=== PATIENT | male | born 1975 | race Caucasian/White ===

== ENCOUNTER 2021-05-12 19:45 | Emergency (ER) | payer BC ==
[2021-05-12 20:01] VITALS: TEMP 98.1
[2021-05-12] MEDS ORDERED: PANTOPRAZOLE 40 MG/10 ML VIAL IVP STA (20:30)
[2021-05-12] MEDS ORDERED: SODIUM CHLORIDE 0.9% 1,000 ML IV STA (20:30)
[2021-05-12] MEDS ORDERED: ONDANSETRON 4 MG/2 ML VIAL IVP STA (20:30)
[2021-05-12 21:01] LABS: Basophils # (A) 0.1 k/uL (0-0.2); Basophils % (A) 0 %; Eosinophils # (A) 0.4 k/uL (0-0.7); Eosinophils % (A) 3 %; HCT 43.1 % (39.0-53.0); Lymphocytes # (A) 2.5 k/uL (1.0-4.8); Lymphocytes % (A) 17 %; MCH 32.6 pg (25.0-35.0); MCHC 34.7 g/dL (31.0-37.0); Mean Platelet Volume 7.7; Monocytes # (A) 0.7 k/uL (0-1.0); Monocytes % (A) 5 %; Neutrophils # (A) 10.7 k/uL (1.3-7.7); Neutrophils % (A) 74 %; Platelet Count 206 k/uL (150-450); Poikilocytosis Slight; RBC 4.59 m/uL (4.30-5.90); RDW 13.7 % (11.5-15.5); WBC 14.5 k/uL (3.8-10.6)
[2021-05-12 21:11] LABS: ALT 14 U/L (4-49); AST 28 U/L (17-59); African American GFR (CKD) >90 (>60 ml/min/1.73 sqM); Albumin 4.7 g/dL (3.5-5.0); Alkaline Phosphatase 82 U/L (38-126); Amylase 69 U/L (30-110); Anion Gap 9 mmol/L; Blood Urea Nitrogen 13 mg/dL (9-20); Calcium 9.6 mg/dL (8.4-10.2); Carbon Dioxide 19 mmol/L (22-30); Chloride 109 mmol/L (98-107); Glucose 103 mg/dL (74-99); Lipase 98 U/L (23-300); Non-African American GFR(CKD) >90 (>60 ml/min/1.73 sqM); Potassium 4.6 mmol/L (3.5-5.1); Sodium 137 mmol/L (137-145); Total Bilirubin 0.5 mg/dL (0.2-1.3); Total Protein 7.6 g/dL (6.3-8.2)
--- NOTE | 2021-05-12 21:44 | CT ---
EXAMINATION TYPE: CT angio thor/abd pel aorta DATE OF EXAM: 05/12/2021 COMPARISON: None HISTORY: Upper abdomen pain radiating into back CT DLP: 1001 mGycm Automated exposure control for dose reduction was used. CONTRAST: Performed with IV Contrast, patient injected with 370 mL of Isovue 370. Images obtained from the thoracic inlet to the floor the pelvis with IV contrast. There are 3-D post processed images. There are noncontrast images of the chest. There is some mild interstitial infiltrate in the left lower lobe posteriorly. Heart size is normal. There is no mediastinal adenopathy. There are no hilar masses. Thoracic aorta is intact. There is no aneurysm or dissection. The ascending aorta measures 3.4 cm. There is no evidence of filling defect i n the pulmonary arteries. Liver spleen stomach pancreas appear intact. Bile ducts are nondilated. There are small calcified gal lstones. There is no adrenal mass. Kidneys show satisfactory contrast opacification. There is no hydr onephrosis. There is 3 cm cortical cyst lateral right kidney. There is no retroperitoneal adenopathy. Appendix appears normal. Ureters are not dilated. Bladder distends smoothly. There is no inguinal he rnia. There is no free fluid in the pelvis. There is arterial flow in the celiac artery and superior mesenteric artery. There is arterial flow in the renal and iliac and femoral arteries. There is arterial flow in the inferior mesenteric artery. There is no evidence of arterial aneurysm or dissection. There is no evidence of hemodynamic stenosis . Thoracic and lumbar vertebra appear intact. There is narrowing at L5-S1 disc space with spurring. Bon y pelvis is intact. Hip joints are intact. The ribs appear intact. Sternum appears normal. IMPRESSION: Normal CT angiogram of the chest abdomen pelvis. No evidence of pulmonary embolism.
--- NOTE | 2021-05-12 21:52 | ED ---
Abdominal Pain HPI - General Chief Complaint: Abdominal Pain Stated Complaint: Chest/Abd Pain Time Seen by Provider: 05/12/21 20:20 Source: patient Mode of arrival: wheelchair Limitations: no limitations - History of Present Illness Initial Comments: 45-year-old male presents to the emergency department with a chief complaint of abdominal pain. Patient reports the pain began around 9 AM this morning and began in the midthoracic region and has now moved to the epigastric abdominal region radiating to the suprapubic region. Patient reports the pain is sharp in nature, 5/10. It does not appear to be postprandial but is exacerbated with some movement. He does report having nausea and 1 episode of nonbilious nonbloody vomiting. He denies any weakness or paresthesias to the legs. Denies any chest pain or shortness of breath. He is a smoker but no history of hypertension. Denies any lightheadedness, dizziness, fevers or chills. Denies any infectious or obstructive urinary symptoms. Denies hematuria, hematochezia or melena. - Related Data Home Medications Medication Instructions Recorded Confirmed Acetaminophen [Tylenol] 500 mg PO Q4-6H PRN 05/12/21 05/12/21 Previous Rx's Medication Instructions Recorded Omeprazole [PriLOSEC] 20 mg PO AC-BRKFST #14 cap 05/13/21 Allergies Allergy/AdvReac Type Severity Reaction Status Date / Time No Known Allergies Allergy Verified 05/12/21 22:14 Review of Systems ROS Statement: Those systems with pertinent positive or pertinent negative responses have been documented in the HPI. ROS Other: All systems not noted in ROS Statement are negative. Past Medical History Past Medical History: No Reported History History of Any Multi-Drug Resistant Organisms: None Reported Past Surgical History: Ear Surgery, Tonsillectomy Past Psychological History: No Psychological Hx Reported Smoking Status: Current every day smoker Past Alcohol Use History: None Reported Past Drug Use History: None Reported General Exam Limitations: no limitations General appearance: alert, in no apparent distress, obese Head exam: Present: atraumatic, normocephalic, normal inspection Eye exam: Present: normal appearance, PERRL Pupils: Present: normal accommodation ENT exam: Present: normal exam, normal oropharynx, mucous membranes moist Neck exam: Present: normal inspection, full ROM. Absent: tenderness Respiratory exam: Present: normal lung sounds bilaterally. Absent: respiratory distress, wheezes, rales, rhonchi, stridor, chest wall tenderness, accessory muscle use Cardiovascular Exam: Present: regular rate, normal rhythm, normal heart sounds. Absent: systolic murmur GI/Abdominal exam: Present: soft. Absent: distended (Epigastric abdominal tenderness), tenderness, guarding, rebound, rigid, bruit, pulsatile mass, hernia Extremities exam: Present: normal inspection, full ROM, normal capillary refill, other (Palpable DP and PT bilaterally. Palpable ulnar and radial pulses bilaterally). Absent: tenderness, pedal edema, joint swelling Back exam: Present: normal inspection, full ROM. Absent: tenderness, CVA tenderness (R), CVA tenderness (L), muscle spasm, paraspinal tenderness, vertebral tenderness Neurological exam: Present: alert, oriented X3, normal gait Psychiatric exam: Present: normal affect, normal mood Skin exam: Present: warm, dry, intact, normal color Course Vital Signs 05/12/21 05/12/21 05/12/21 19:58 22:33 23:43 Temperature 98.1 F Pulse Rate 79 47 L 60 Respiratory 20 18 18 Rate Blood Pressure 131/88 147/85 120/80 O2 Sat by Pulse 100 99 99 Oximetry Medical Decision Making - Medical Decision Making 45-year-old male presents to the emergency department with a chief complaint of abdominal pain. On physical examination, patient had palpable peripheral pulses. No weakness in the extremities. Due to the nature of his symptoms, there was a concern for possible aortic dissection. IV access was obtained and patient was immediately sent for CT angiogram of the aorta on the chest abdomen pelvis. This revealed no acute findings. Laboratory work revealed leukocytosis of 14,000 which I suspect is reactive, secondary to the vomiting. CMP unremarkable. Urine shows +1 ketones suggestive of mild dehydration. Patient was given antiemetics, IV fluids, Toradol and Protonix. On reevaluation, he reports improvement in symptoms. He did later reveal mild abdominal bloating in the epigastric region and left upper quadrant abdomen. We'll prescribe omeprazole. Advised to follow with the primary care physician. Return parameters were thoroughly discussed with patient is an attending ago. - Lab Data Result diagrams: 05/12/21 20:33 05/12/21 20:33 Lab Results 05/12/21 05/12/21 05/12/21 Range/Units 20:33 20:33 20:33 WBC 14.5 H (3.8-10.6) k/uL RBC 4.59 (4.30-5.90) m/uL Hgb 15.0 (13.0-17.5) gm/dL Hct 43.1 (39.0-53.0) % MCV 94.0 (80.0-100.0) fL MCH 32.6 (25.0-35.0) pg MCHC 34.7 (31.0-37.0) g/dL RDW 13.7 (11.5-15.5) % Plt Count 206 (150-450) k/uL MPV 7.7 Neutrophils % 74 % Lymphocytes % 17 % Monocytes % 5 % Eosinophils % 3 % Basophils % 0 % Neutrophils # 10.7 H (1.3-7.7) k/uL Lymphocytes # 2.5 (1.0-4.8) k/uL Monocytes # 0.7 (0-1.0) k/uL Eosinophils # 0.4 (0-0.7) k/uL Basophils # 0.1 (0-0.2) k/uL Poikilocytosis Slight Sodium 137 (137-145) mmol/L Potassium 4.6 (3.5-5.1) mmol/L Chloride 109 H (98-107) mmol/L Carbon Dioxide 19 L (22-30) mmol/L Anion Gap 9 mmol/L BUN 13 (9-20) mg/dL Creatinine 0.72 (0.66-1.25) mg/dL Est GFR (CKD-EPI)AfAm >90 (>60 ml/min/1.73 sqM) Est GFR (CKD-EPI)NonAf >90 (>60 ml/min/1.73 sqM) Glucose 103 H (74-99) mg/dL Calcium 9.6 (8.4-10.2) mg/dL Total Bilirubin 0.5 (0.2-1.3) mg/dL AST 28 (17-59) U/L ALT 14 (4-49) U/L Alkaline Phosphatase 82 (38-126) U/L Troponin I (0.000-0.034) ng/mL Total Protein 7.6 (6.3-8.2) g/dL Albumin 4.7 (3.5-5.0) g/dL Amylase 69 (30-110) U/L Lipase 98 (23-300) U/L Urine Color Light Yellow Urine Appearance Clear (Clear) Urine pH 6.0 (5.0-8.0) Ur Specific [place] >1.050 H (1.001-1.035) Urine Protein Trace H (Negative) Urine Glucose (UA) Negative (Negative) Urine Ketones 1+ H (Negative) Urine Blood Trace H (Negative) Urine Nitrite Negative (Negative) Urine Bilirubin Negative (Negative) Urine Urobilinogen <2.0 (<2.0) mg/dL Ur Leukocyte Esterase Negative (Negative) Urine RBC 1 (0-5) /hpf Urine WBC <1 (0-5) /hpf Urine Mucus Rare H (None) /hpf 05/12/21 Range/Units 20:33 WBC (3.8-10.6) k/uL RBC (4.30-5.90) m/uL Hgb (13.0-17.5) gm/dL Hct (39.0-53.0) % MCV (80.0-100.0) fL MCH (25.0-35.0) pg MCHC (31.0-37.0) g/dL RDW (11.5-15.5) % Plt Count (150-450) k/uL MPV Neutrophils % % Lymphocytes % % Monocytes % % Eosinophils % % Basophils % % Neutrophils # (1.3-7.7) k/uL Lymphocytes # (1.0-4.8) k/uL Monocytes # (0-1.0) k/uL Eosinophils # (0-0.7) k/uL Basophils # (0-0.2) k/uL Poikilocytosis Sodium (137-145) mmol/L Potassium (3.5-5.1) mmol/L Chloride (98-107) mmol/L Carbon Dioxide (22-30) mmol/L Anion Gap mmol/L BUN (9-20) mg/dL Creatinine (0.66-1.25) mg/dL Est GFR (CKD-EPI)AfAm (>60 ml/min/1.73 sqM) Est GFR (CKD-EPI)NonAf (>60 ml/min/1.73 sqM) Glucose (74-99) mg/dL Calcium (8.4-10.2) mg/dL Total Bilirubin (0.2-1.3) mg/dL AST (17-59) U/L ALT (4-49) U/L Alkaline Phosphatase (38-126) U/L Troponin I <0.012 (0.000-0.034) ng/mL Total Protein (6.3-8.2) g/dL Albumin (3.5-5.0) g/dL Amylase (30-110) U/L Lipase (23-300) U/L Urine Color Urine Appearance (Clear) Urine pH (5.0-8.0) Ur Specific [place] (1.001-1.035) Urine Protein (Negative) Urine Glucose (UA) (Negative) Urine Ketones (Negative) Urine Blood (Negative) Urine Nitrite (Negative) Urine Bilirubin (Negative) Urine Urobilinogen (<2.0) mg/dL Ur Leukocyte Esterase (Negative) Urine RBC (0-5) /hpf Urine WBC (0-5) /hpf Urine Mucus (None) /hpf - EKG Data EKG Comments: Sinus bradycardia Ventricular rate 50, [place] 168, QRS 86, QTC 423. Disposition Clinical Impression: Abdominal pain Disposition: HOME SELF-CARE Condition: Stable Instructions (If sedation given, give patient instructions): Abdominal Pain (ED) Additional Instructions: Please return to the Emergency Department if symptoms worsen or any other concerns. Follow with her primary care physician. Prescriptions: Omeprazole [PriLOSEC] 20 mg PO AC-BRKFST #14 cap Is patient prescribed a controlled substance at d/c from ED?: No Referrals: None,Stated [Primary Care Provider] - 1-2 days Time of Disposition: 22:40
[2021-05-12] MEDS ORDERED: KETOROLAC 15 MG/ML 1 ML VIAL IVP STA (22:42)
[2021-05-12 22:44] VITALS: RESP 18
[2021-05-12 23:06] LABS: Appearance,Urine Clear (Clear); Bilirubin,Urine Negative (Negative); Blood,Urine Trace (Negative); Color,Urine Light Yellow; Glucose,Urine (UA) Negative (Negative); Ketones,Urine 1+ (Negative); Leukocyte Esterase,Urine Negative (Negative); Mucus,Urine Rare /hpf; Nitrite,Urine Negative (Negative); Protein,Urine Trace (Negative); RBC,Urine 1 /hpf (0-5); Urobilinogen,Urine <2.0 mg/dL (<2.0); WBC,Urine <1 /hpf (0-5)
[2021-05-12 23:14] LABS: Specific Gravity,Urine >1.050 (1.001-1.035)
[2021-05-12 23:45] VITALS: BP 120/80; PULSE 60
== END 2021-05-12 23:45 | disposition home or self-care (01) ==
LOC: EC 19:45
DX: R10.13 Epigastric pain (principal); F17.200 Nicotine dependence, unspecified, uncomplicated; Z90.89 Acquired absence of other organs
CPT/HCPCS: 99284; 96374; 96375 ×2; 96361; 36415; 80053; 82150; 83690; 84484; 85025; 81001; 71275; 74174; J2405; J1885; C9113; Q9967

== ENCOUNTER 2022-02-23 04:12 | Emergency (ER) | payer BC, OTHER ==
[2022-02-23 04:21] VITALS: BP 136/91; PULSE 96; RESP 18; TEMP 97.9
[2022-02-23] MEDS ORDERED: LIDOCAINE 1% INJ 10MG/ML (5 ML VIAL-PF) SQ STA (04:38)
--- NOTE | 2022-02-23 05:01 | XR ---
EXAMINATION TYPE: XR hand complete LT DATE OF EXAM: 02/23/2022 COMPARISON: NONE HISTORY: Pain TECHNIQUE: 3 views FINDINGS: There is comminuted fracture of the tuft of the distal phalanx of the middle finger no disl ocation. There is separation of the fragments up to 3 mm. No evidence of a foreign body. IMPRESSION: Comminuted tuft fracture of the distal phalanx of the middle finger.
[2022-02-23] MEDS ORDERED: CEPHALEXIN 500 MG CAP PO STA (05:11)
[2022-02-23] MEDS ORDERED: DIPH,PERTUS(ACELL)TETVAC-LF 0.5 ML VIAL IM ONE (05:11)
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
[2022-02-23] MEDS ORDERED: CEPHALEXIN 500MG STARTER PACK 4 CAP BTL PO STA (05:12)
[2022-02-23] MEDS ORDERED: traMADol 50 MG STARTER PACK 3 TAB BTL PO STA (05:12)
== END 2022-02-23 05:58 | disposition home or self-care (01) ==
LOC: EC 04:12
DX: S62.631A Displaced fracture of distal phalanx of left index finger, initial encounter for closed fracture (principal); S61.213A Laceration without foreign body of left middle finger without damage to nail, initial encounter; F17.200 Nicotine dependence, unspecified, uncomplicated; Z23 Encounter for immunization; W23.1XXA Caught, crushed, jammed, or pinched between stationary objects, initial encounter
CPT/HCPCS: 73130; 90715; 12001; 99283; 90471; J2001

== ENCOUNTER 2022-03-16 09:16 | Inpatient (IN) | payer BC ==
--- NOTE | 2022-03-16 09:27 | ED ---
General Adult HPI - General Chief complaint: Chest Pain Stated complaint: stemi Time Seen by Provider: 03/16/22 09:18 Source: patient, EMS - History of Present Illness Initial comments: Patient is a 46-year-old male who presents emergency department for a STEMI. There is an issue with registering the patient, and therefore he was held in the emergency department for approximately 5 minutes while he did so. I did speak with the patient this time. He had sudden onset substernal chest pain this morning when he awoke. No history of cardiac disease. Does have history gallbladder she is. Vital signs were within normal limits on the way to the hospital, and are within normal limits at this time. He already received aspirin. Instructed EMS to hold nitroglycerin. Presented without a cardiac mon itor and therefore will be placed on 1 while we wait. Pads were placed. 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 EKG sent by EMS showed ST segment elevations in lead 2, 3, aVF and depressions in aVL, V2, V3 - Related Data Home Medications Medication Instructions Recorded Confirmed Famotidine 40 mg PO DAILY 03/16/22 03/16/22 Previous Rx's Medication Instructions Recorded Omeprazole [PriLOSEC] 20 mg PO AC-BRKFST #14 cap 05/13/21 Allergies Allergy/AdvReac Type Severity Reaction Status Date / Time No Known Allergies Allergy Verified 03/16/22 09:28 Review of Systems ROS Statement: Those systems with pertinent positive or pertinent negative responses have been documented in the HPI. Review of Systems: CONST: Denies fever EYES: Denies blurry vision ENT: Denies nasal congestion C/V: Endorses chest pain RESP: Denies shortness of breath GI: Denies abdominal pain : Denies dysuria SKIN: Denies rash. MSK: Denies joint pain. NEURO: Denies headache ROS Other: All systems not noted in ROS Statement are negative. Past Medical History Past Medical History: No Reported History History of Any Multi-Drug Resistant Organisms: None Reported Past Surgical History: Ear Surgery, Tonsillectomy Past Psychological History: No Psychological Hx Reported Smoking Status: Current every day smoker Past Alcohol Use History: None Reported Past Drug Use History: None Reported General Exam - General Exam Comments Initial Comments: General: Appears in mild distress secondary to chest pain. HEAD: Normal with no signs of head trauma. EYES: PERRLA, EOMI, conjunctiva normal, no discharge. ENT: Hearing grossly intact, normal oropharynx. RESPIRATORY: Clear breath sounds bilaterally. No increased work of breathing. C/V: Regular rate and rhythm. S1 and S2 auscultated, no edema, peripheral pulses 2+ and intact throughout ABD: Abd is soft, nontender, nondistended EXT: No Obvious deformity. SKIN: No rashes or lesions observed on exposed skin. NEURO: Alert and oriented 4. Procedures - [place] Protocol (Time Out) Patient Identification (2 identifiers required): Chart, Name, Birthdate Patient/Legal [employer] Worker has Confirmed: Identity, Procedure, Consent Site Marked: Not Applicable Medical Decision Making - Medical Decision Making STEMI was activated prior to arrival. yard laborer 3 is ready for the patient. However patient presents is on no security monitor and no oxygen, and we are waiting for registration to register the patient which was required prior to going up to the landscaping and groundskeeping laborer. Therefore he was briefly moved in trauma bay [address] him on a stretcher, place a portable security monitor with pads in place, placed on [place] oxygen, and to obtain a set of vital signs. Vitals are within normal limits. Cardiology MLKaylan Garcia is present as well and was in agreement with registering the patient and immediately transport upstairs. I was able to briefly evaluate the patient, ensure that he already received an aspirin tablet, patient is now transferred up to the landscaping and groundskeeping laborer. I discussed this case with the cardiology MLP Radha was present at bedside was in contact with Dr. Dickson, who is performing the cardiac cath. They were in agreement this plan. EKG obtained from EMS was given to cardiology. Patient already received aspirin, we will hold nitroglycerin at this time.Laboratory studies, workup will be deferred to cardiology and the admitting team. I was able to contact the admitting team, Dr. Naidu of [facility] who admits for the patient's PCP. She accepted the admission. Patient will be admitted following cardiac catheterization. Disposition Clinical Impression: ST elevation myocardial infarction (STEMI) Disposition: ADMITTED IP TO THIS HOSP Condition: Serious Time of Disposition: 09:25
[2022-03-16] MEDS ORDERED: fentaNYL (PF) 50 MCG/ML 2 ML AMP ONE (09:28)
[2022-03-16] MEDS ORDERED: HEPARIN SODIUM 1,000 UN/ML (10ML VL) ONE (09:30)
--- NOTE | 2022-03-16 09:32 | P.CRDCN ---
History of Present Illness History of present illness: HISTORY OF PRESENTING ILLNESS This is a pleasant 46-year-old with past medical history significant for tobacco abuse and GERD. He admits to starting the have diaphoresis and chest pressure which started approximately an hour and half prior to arrival always playing with his son. Denies any prior similar episodes in past. He does smoke a pack per day. Family history only of hypertension. Denies any illicit drugs. Chest pain persists and therefore presented to the ER and was found have an inferior STEMI. REVIEW OF SYSTEMS At the time of my exam: CONSTITUTIONAL: Denies fever or chills. CARDIOVASCULAR: +chest pain, no shortness of breath, orthopnea, PND or palpitations. RESPIRATORY: Denies cough. GASTROINTESTINAL: Denies abdominal pain, diarrhea, constipation, nausea or vomiting. MUSCULOSKELETAL: Denies myalgias. NEUROLOGIC: Denies numbness, tingling or weakness. ENDOCRINE: Denies fatigue, weight change, polydipsia or polyurina. GENITOURINARY: Denies burning, hematuria or urgency with micturation. HEMATOLOGIC: Denies history of anemia or bleeding. PHYSICAL EXAMINATION Vital signs reviewed. CONSTITUTIONAL: No apparent distress. HEENT: Head is normocephalic. Pupils are equal, round. Sclerae anicteric. Mucous membranes of the mouth are moist. No JVD. No carotid bruit. CHEST EXAMINATION: Lungs are clear to auscultation. No chest wall tenderness is noted on palpation or with deep breathing. HEART EXAMINATION: Regular rate and rhythm. S1, S2 heard. No murmurs, gallops or rub. ABDOMEN: Soft, nontender. Positive bowel sounds. EXTREMITIES: 2+ peripheral pulses, no lower extremity edema and no calf tenderness. NEUROLOGIC EXAMINATION: Patient is awake, alert and oriented x3. ASSESSMENT 1. Inferior STEMI 2. Tobacco abuse 3. History of GERD PLAN Discussed plans for urgent heart catheterization patient is agreeable. Aspirin, heparin. Check 2-D echo. Tobacco cessation. Further recommendations to follow. Past Medical History Past Medical History: No Reported History History of Any Multi-Drug Resistant Organisms: None Reported Past Surgical History: Ear Surgery, Tonsillectomy Past Psychological History: No Psychological Hx Reported Smoking Status: Current every day smoker Past Alcohol Use History: None Reported Past Drug Use History: None Reported Medications and Allergies Home Medications Medication Instructions Recorded Confirmed Type Omeprazole [P[facility]LOSEC[facility] 05/13/21 Rx Famotidine 40 mg PO DAILY 03/16/22 03/16/22 History Allergies Allergy/AdvReac Type Severity Reaction Status Date / Time No Known Allergies Allergy Verified 03/16/22 09:28
[2022-03-16] MEDS ORDERED: LIDOCAINE 1% INJ 10MG/ML (30 ML VIAL-PF) SQ ONE ×3 (09:33→09:36)
[2022-03-16] MEDS: HEPARIN SODIUM 1,000 UN/ML (10ML VL) IV ONE ×3 (09:35→10:06)
[2022-03-16] MEDS ORDERED: MIDAZOLAM 2 MG/2 ML VIAL IV ONE ×2 (09:35)
[2022-03-16] MEDS ORDERED: fentaNYL (PF) 50 MCG/ML 2 ML AMP IV ONE ×2 (09:35)
[2022-03-16] MEDS ORDERED: VERAPAMIL SYRINGE (5 MG/10 ML) INTRAARTER ONE ×2 (09:36)
[2022-03-16] MEDS ORDERED: PRASUGREL 10 MG TAB ONE (09:38)
[2022-03-16] MEDS ORDERED: PRASUGREL 10 MG TAB PO ONE ×2 (09:40)
[2022-03-16] MEDS: NITROGLYCERIN 1000MCG/10ML SYRINGE INTRACORON ONE ×2 (09:45→09:50)
[2022-03-16 10:03] LABS: Basophils # (A) 0.1 k/uL (0-0.2); Basophils % (A) 1 %; Eosinophils # (A) 0.4 k/uL (0-0.7); Eosinophils % (A) 3 %; HCT 36.9 % (39.0-53.0); HGB 12.6 gm/dL (13.0-17.5); Lymphocytes # (A) 3.2 k/uL (1.0-4.8); Lymphocytes % (A) 24 %; MCH 31.9 pg (25.0-35.0); MCHC 34.3 g/dL (31.0-37.0); MCV 93.1 fL (80.0-100.0); Mean Platelet Volume 8.2; Monocytes # (A) 0.7 k/uL (0-1.0); Monocytes % (A) 6 %; Neutrophils # (A) 8.8 k/uL (1.3-7.7); Neutrophils % (A) 66 %; Platelet Count 229 k/uL (150-450); RBC 3.96 m/uL (4.30-5.90); RDW 12.4 % (11.5-15.5); WBC 13.4 k/uL (3.8-10.6)
[2022-03-16] MEDS ORDERED: SODIUM CHLORIDE 0.9% 1,000 ML IV ONE (10:05)
[2022-03-16] MEDS ORDERED: IOPAMIDOL-370 125ML BTL INJ ONE (10:06)
[2022-03-16] MEDS ORDERED: MAG HYDROX/AL HYDROX/SIMETH 30 ML CUP PO PRN (10:09)
[2022-03-16] MEDS ORDERED: NITROGLYCERIN SL TABS 0.4 MG TAB SUBLINGUAL PRN (10:09)
[2022-03-16] MEDS ORDERED: ZOLPIDEM 5 MG TAB PO PRN (10:09)
[2022-03-16] MEDS ORDERED: ATROPINE SULFATE 0.1 MG/ML 10ML SYRINGE IV PRN (10:09)
[2022-03-16] MEDS ORDERED: RX INFO: IV CONTRAST WAS GIVEN 1 EACH MISC MISCELLANE PRN (10:09)
--- NOTE | 2022-03-16 10:09 | P.PRCINT ---
Percutaneous Coronary Int. - Percutaneous Coronary Intervention Percutaneous Coronary Intervention: PROCEDURES PERFORMED: Left heart catheterization, bilateral coronary angiography, PCI mid RCA with 3.5 x 23 mm Xience YESI postdilated with a 4.0 noncompliant balloon INDICATION: STEMI CONSENT:I have discussed the risks, benefits and alternative therapies for the above-mentioned procedure and for both sedation/analgesia as well as necessary blood product administration, if indicated, as they pertain to this patient. The patient has indicated understanding and acceptance of the risks and procedures discussed. PROCEDURE: After the risks, benefits and alternatives of the above mentioned procedure explained in detail with the patient, informed consent was obtained. Patient was taken to the catheterization lab and prepped and draped in usual fashion. 1% lidocaine was used to anesthetize the right radial artery. A 6- Swedish sheath was placed in the right radial artery using modified Seldinger technique. A 6-Swedish AL 0.75 guide was used to engage the RCA. A 0.014 BMW wire was advanced into the distal RCA. A 3.0 x 12 mm balloon was used to predilate the lesion. Next a 3.5 x 23 mm Xience YESI was placed in the mid RCA. There was diffuse mild 20-30% disease both proximal as well as distal to the lesion however felt to be the best landings zone. The mid and proximal portion of the stent was postdilated with a 4.0 x 12 mm noncompliant balloon. Preintervention there is 99% stenosis and PAL 1 flow and postintervention there was 0% stenosis and PAL-3 flow. Left coronary angiography was performed with a 5-Swedish JL 3.5 catheter. A 5- Swedish pigtail catheter was inserted into the left ventricle and pressure measurements were obtained. The right radial sheath was removed and a TR band was placed with hemostasis achieved. The patient tolerated the procedure well. Patient was transported back to the post catheterization holding area in stable condition. Conscious Sedation: Patient was monitored under the direct supervision of vision of myself for conscious sedation using Versed and fentanyl for a total duration of 26 minutes HEMODYNAMICS: Aortic: 94/76 LV: 98/5 LVEDP 22 SELECTIVE CORONARY ARTERIOGRAPHY: LEFT MAIN: The left main is a large caliber vessel which bifurcates into the LAD and circumflex. There is no significant stenosis. LEFT ANTERIOR DESCENDING CORONARY ARTERY: LAD is a large caliber vessel which wraps around to the apex. There is a 30-40% mid LAD stenosis and otherwise normal. LEFT CIRCUMFLEX CORONARY ARTERY: Left circumflex is a moderate caliber vessel with mild luminal irregularities. RIGHT CORONARY ARTERY: The right coronary artery is a large caliber vessel which gives off a PDA and PLV branch and is the dominant vessel. There is diffuse mid 20- 30% stenosis and a more focal 99% stenosis with more distal 20% stenosis. FINAL IMPRESSION: 1. CAD as described above including 99% RCA stenosis and 30-40% mid LAD stenosis 2. S/p PCI mid RCA with 3.5 x 23 mm Xience YESI postdilated with a 4.0 noncompliant balloon 3. Mildly elevated left sided filling pressures PLAN: 1. Aggressive risk factor modification per most recent ACC/AHA guidelines. 2. Continue dual antiplatelets with aspirin and Effient for 12 months. 3. Tobacco cessation.
[2022-03-16 10:23] LABS: Glucose,Whole Blood 105 mg/dL (70-110)
[2022-03-16 10:54] LABS: African American GFR (CKD) >90 (>60 ml/min/1.73 sqM); Anion Gap 9 mmol/L; Blood Urea Nitrogen 13 mg/dL (9-20); Carbon Dioxide 20 mmol/L (22-30); Chloride 110 mmol/L (98-107); Glucose 119 mg/dL (74-99); Non-African American GFR(CKD) >90 (>60 ml/min/1.73 sqM); Potassium 3.1 mmol/L (3.5-5.1); Sodium 139 mmol/L (137-145)
[2022-03-16 12:11] VITALS: BMI 30.1
[2022-03-16] MEDS ORDERED: NALOXONE 0.4 MG/ML 1 ML VIAL IV PRN (12:27)
[2022-03-16] MEDS ORDERED: HYDROcodone/APAP 5-325MG 1 EACH TAB PO PRN (12:27)
[2022-03-16] MEDS ORDERED: ACETAMINOPHEN TAB 325 MG TAB PO PRN (12:27)
[2022-03-16] MEDS ORDERED: ONDANSETRON 4 MG/2 ML VIAL IVP PRN (12:27)
[2022-03-16] MEDS ORDERED: bisacodyL 5 MG TABLET.DR PO PRN (12:27)
--- NOTE | 2022-03-16 12:33 | P.HPIM ---
History of Present Illness H&P Date: 03/16/22 Patient is a 46-year-old male with history of acid reflux, tobacco abuse, and gallbladder dysfunction who presented to the hospital via EMS with chest pain. He was a code STEMI activation. He immediately proceeded to the labeling machine operator and had a stent placed to the RCA, he also had a 30% lesion to the LAD. He was admitted to the ICU. Patient seen and examined at bedside. He reports that today he was playing with his son when he started developing chest pain and he presented to the ER. Currently his chest pain is at a 1 out of 10, he is still having some numbness and tingling down bilateral arms, no shortness of breath, no diaphoresis, no nausea or vomiting. He denies any recent cough, cold, fever, flu. He was seen at [facility] on 03/05/[address] done for abdominal pain with shoulder pain. They thought he likely had gallbladder dysfunction and recommended following up with his primary. That was scheduled for tomorrow. He denies any significant cardiac history. He denies any family cardiac history. He has never had a stress test in the past. He does smoke approximately one pack per day Pertinent positives and negatives as discussed in HPI, a complete review of systems was performed and all other systems are negative. Vital signs reviewed General: nontoxic, no distress, appears at stated age Derm: warm, dry Head: atraumatic, normocephalic, symmetric Eyes: EOMI, no lid lag, anicteric sclera, pupils equal round reactive to light ENT: Nose and ears atraumatic, no thrush, no pharyngeal erythema Neck: No thyromegaly, no cervical lymphadenopathy, trachea midline, supple Mouth: no lip lesion, mucus membranes moist Cardiovascular: S1S2 reg, no murmur, positive posterior tibial pulse bilateral, no edema, capillary refill less than 2 seconds Lungs: clear to auscultation bilateral, no rhonchi, no rales, no wheeze, no accessory muscle use Abdominal: soft, nontender to palpation, no guarding, no appreciable organomegaly, normal bowel sounds Ext: no gross muscle atrophy, muscle strength muscle strength 5 out of 5 in all 4 extremities, no contractures Neuro: CN II-XII grossly intact, light touch intact all 4 extremities, finger to nose within normal limits, Psych: Alert, oriented, appropriate affect Assessment/Plan: ST segment elevated myocardial infarction status post PCI to the RCA -Aspirin, Effient, Lipitor, Lopressor -Await echo -Screen with cholesterol profile and hemoglobin A1c -Telemetry -Cardiology recommendations GERD -Resume PPI and H2 cora The patient is admitted with an anticipated greater than 2 midnight stay for evaluation of ST segment elevated myocardial infarction. Surrogate decision-maker: CODE STATUS: Full DVT prophylaxis: SCDs Discussed with: Patient, nursing Anticipated discharge date: in 2-[address]: home A total of 60 minutes was spent on the care of this complex patient more than 50% of the time was spent in counseling and care coordination. Past Medical History Past Medical History: GERD/Reflux Additional Past Medical History / Comment(s): gall bladder issue, hernia, and cyst on kidney History of Any Multi-Drug Resistant Organisms: None Reported Past Surgical History: Ear Surgery, Tonsillectomy Past Psychological History: No Psychological Hx Reported Smoking Status: Current every day smoker Past Alcohol Use History: None Reported Past Drug Use History: None Reported - Past Family History Brother(s) Family Medical History: Sleep Apnea/CPAP/BIPAP Sister(s) Family Medical History: Musculoskeletal Disorder Father Family Medical History: Cancer Mother Family Medical History: Hyperlipidemia Daughter(s) Family Medical History: No Reported History Son(s) Family Medical History: No Reported History Medications and Allergies Home Medications Medication Instructions Recorded Confirmed Type Omeprazole [PriLOSEC] 20 mg PO AC-BRKFST #14 cap 05/13/21 03/16/22 Rx Famotidine 40 mg PO DAILY 03/16/22 03/16/22 History Allergies Allergy/AdvReac Type Severity Reaction Status Date / Time No Known Allergies Allergy Verified 03/16/22 09:28 Physical Exam Osteopathic Statement: *. No significant issues noted on an osteopathic structural exam other than those noted in the History and Physical/Consult. Vitals: Vital Signs Temp Pulse Resp BP Pulse Ox 03/16/22 12:00 97.8 F 67 12 140/101 98 03/16/22 11:30 60 12 130/92 98 03/16/22 11:10 61 18 97 03/16/22 11:00 91 24 128/86 98 03/16/22 10:50 61 16 123/84 98 03/16/22 10:40 70 35 H 99 03/16/22 10:30 64 15 120/85 98 03/16/22 10:20 98 03/16/22 09:20 97.4 F L 63 18 126/91 97 Intake and Output 03/15/22 03/16/22 03/16/22 22:59 06:59 14:59 Intake Total 650 Output Total 400 Balance 250 Intake: IV 650 Sodium Chloride 0.9% 1, 150 000 ml @ 0 mls/hr IV .[facility] Rx#:[id number] Output: Urine 400 Other: Voiding Method Urinal Weight 95.254 kg Results CBC & Chem 7: 03/16/22 09:40 03/16/22 09:40 Labs: Abnormal Lab Results - Last 24 Hours (Table) 03/16/22 03/16/22 03/16/22 Range/Units 09:40 09:40 09:40 WBC 13.4 H (3.8-10.6) k/uL RBC 3.96 L (4.30-5.90) m/uL Hgb 12.6 L (13.0-17.5) gm/dL Hct 36.9 L (39.0-53.0) % Neutrophils # 8.8 H (1.3-7.7) k/uL Potassium 3.1 L (3.5-5.1) mmol/L Chloride 110 H (98-107) mmol/L Carbon Dioxide 20 L (22-30) mmol/L Glucose 119 H (74-99) mg/dL Calcium 8.0 L (8.4-10.2) mg/dL Troponin I 0.236 H* (0.000-0.034) ng/mL Thrombosis Risk Factor Assmnt - Choose All That Apply Any of the Below Risk Factors Present?: Yes Each Factor Represents 1 point: Acute MN, Age 41-60 years Other Risk Factors: No Thrombosis Risk Factor Assessment Total Risk Factor Score: 2 Thrombosis Risk Factor Assessment Level: Low Risk
[2022-03-16] MEDS: PANTOPRAZOLE 40 MG TABLET PO SCH (13:06)
[2022-03-16] MEDS: FAMOTIDINE 20 MG TAB PO SCH (13:06)
[2022-03-16] MEDS: SODIUM CHLORIDE 0.9% 1,000 ML in EMPTY BAG 1 BAG IV SCH ×2 (13:07→21:04)
[2022-03-16] MEDS ORDERED: Potassium Replacement Protocol 1 EACH MISC MISCELLANE PRN (20:40)
[2022-03-16] MEDS: ATORVASTATIN 80 MG TAB PO SCH (21:04)
[2022-03-16] MEDS: POTASSIUM CHLORIDE ER 20 MEQ TAB.ER PO SCH ×2 (21:04→22:10)
[2022-03-16] MEDS: METOPROLOL TARTRATE 12.5 MG TAB PO SCH (21:04)
[2022-03-17] MEDS: PANTOPRAZOLE 40 MG TABLET PO SCH (06:31)
[2022-03-17] MEDS: SODIUM CHLORIDE 0.9% 1,000 ML in EMPTY BAG 1 BAG IV SCH (06:36)
[2022-03-17 07:12] LABS: Basophils # (A) 0.1 k/uL (0-0.2); Basophils % (A) 1 %; Eosinophils # (A) 0.3 k/uL (0-0.7); Eosinophils % (A) 3 %; HCT 37.2 % (39.0-53.0); HGB 12.6 gm/dL (13.0-17.5); Lymphocytes # (A) 3.3 k/uL (1.0-4.8); Lymphocytes % (A) 31 %; MCH 31.8 pg (25.0-35.0); MCHC 33.8 g/dL (31.0-37.0); MCV 94.2 fL (80.0-100.0); Mean Platelet Volume 8.2; Monocytes # (A) 0.8 k/uL (0-1.0); Monocytes % (A) 8 %; Neutrophils # (A) 5.9 k/uL (1.3-7.7); Neutrophils % (A) 56 %; Platelet Count 211 k/uL (150-450); RBC 3.95 m/uL (4.30-5.90); RDW 12.6 % (11.5-15.5); WBC 10.5 k/uL (3.8-10.6)
[2022-03-17 07:25] LABS: African American GFR (CKD) >90 (>60 ml/min/1.73 sqM); Anion Gap 6 mmol/L; Blood Urea Nitrogen 9 mg/dL (9-20); Calcium 8.6 mg/dL (8.4-10.2); Carbon Dioxide 24 mmol/L (22-30); Chloride 110 mmol/L (98-107); Glucose 102 mg/dL (74-99); Non-African American GFR(CKD) >90 (>60 ml/min/1.73 sqM); Sodium 140 mmol/L (137-145)
--- NOTE | 2022-03-17 08:19 | P.PN ---
Subjective HISTORY OF PRESENTING ILLNESS This is a pleasant 46-year-old with past medical history significant for tobacco abuse and GERD. He admits to starting the have diaphoresis and chest pressure which started approximately an hour and half prior to arrival always playing with his son. Denies any prior similar episodes in past. He does smoke a pack per day. Family history only of hypertension. Denies any illicit drugs. Chest pain persists and therefore presented to the ER and was found have an inferior STEMI. 03/17 Patient seen and examined. Patient admits to a atypical mole chest pain which does not feel similar to his prior pain which was more of a pressure sensation and only lasts for a few minutes when he turns. None of his prior chest pressure sensation which resolved after heart catheterization. Denies any shortness breath. Heart rates have been in the 50s however asymptomatic and has been walking around without any difficulty and no lightheadedness. Echocardiogram performed however pending results. PHYSICAL EXAMINATION Vital signs reviewed. CONSTITUTIONAL: No apparent distress. HEENT: Head is normocephalic. Pupils are equal, round. Sclerae anicteric. Mucous membranes of the mouth are moist. No JVD. No carotid bruit. CHEST EXAMINATION: Lungs are clear to auscultation. No chest wall tenderness is noted on palpation or with deep breathing. HEART EXAMINATION: Regular rate and rhythm. S1, S2 heard. No murmurs, gallops or rub. ABDOMEN: Soft, nontender. Positive bowel sounds. EXTREMITIES: 2+ peripheral pulses, no lower extremity edema and no calf tenderness. NEUROLOGIC EXAMINATION: Patient is awake, alert and oriented x3. ASSESSMENT 1. Inferior STEMI, status post PCI RCA with mild disease elsewhere 2. Tobacco abuse 3. History of GERD 4. Asymptomatic sinus bradycardia PLAN Patient is status post successful PCI RCA. He has mild disease elsewhere area continue with dual antiplatelets and high intensity statin. Await cholesterol results. Await 2-D echo results. Likely DC home tomorrow if patient remains stable. Asymptomatic sinus bradycardia and continue beta cora as tolerated. Discussed tobacco cessation and patient is agreeable. Objective - Vital Signs Vital signs: Vital Signs Temp 98.3 F 03/17/22 00:00 Pulse 65 03/17/22 07:00 Resp 14 03/17/22 07:00 BP 101/62 03/17/22 07:00 Pulse Ox 89 L 03/17/22 07:00 FiO2 Intake & Output 03/16/22 03/17/22 03/17/22 18:59 06:59 18:59 Intake Total 725 1645 0 Output Total 1600 Balance -875 1645 0 Weight 95.254 kg 97.5 kg Intake: IV 725 Sodium Chloride 0.9% 1, 225 000 ml @ 0 mls/hr IV .[facility] Rx#:[id number] Intake, IV Titration 1045 0 Amount Sodium Chloride 0.9% 1, 1045 0 000 ml In Empty Bag 1 bag @ 1 ML/KG/HR 95.254 mls/ hr IV .[id number] [facility] Rx#: [id number] Oral 600 Output: Urine 1600 Other: Voiding Method Urinal Toilet # Voids 0 0 # Bowel Movements 1 - Labs CBC & Chem 7: 03/17/22 06:44 03/17/22 06:44 Labs: Abnormal Lab Results - Last 24 Hours (Table) 03/16/22 03/16/22 03/16/22 Range/Units 09:40 09:40 09:40 WBC 13.4 H (3.8-10.6) k/uL RBC 3.96 L (4.30-5.90) m/uL Hgb 12.6 L (13.0-17.5) gm/dL Hct 36.9 L (39.0-53.0) % Neutrophils # 8.8 H (1.3-7.7) k/uL Potassium 3.1 L (3.5-5.1) mmol/L Chloride 110 H (98-107) mmol/L Carbon Dioxide 20 L (22-30) mmol/L Glucose 119 H (74-99) mg/dL Calcium 8.0 L (8.4-10.2) mg/dL Troponin I 0.236 H* (0.000-0.034) ng/mL 03/17/22 03/17/22 Range/Units 06:44 06:44 WBC (3.8-10.6) k/uL RBC 3.95 L (4.30-5.90) m/uL Hgb 12.6 L (13.0-17.5) gm/dL Hct 37.2 L (39.0-53.0) % Neutrophils # (1.3-7.7) k/uL Potassium (3.5-5.1) mmol/L Chloride 110 H (98-107) mmol/L Carbon Dioxide (22-30) mmol/L Glucose 102 H (74-99) mg/dL Calcium (8.4-10.2) mg/dL Troponin I (0.000-0.034) ng/mL
[2022-03-17] MEDS: FAMOTIDINE 20 MG TAB PO SCH (10:05)
[2022-03-17] MEDS: ASPIRIN 81 MG PO SCH (10:05)
[2022-03-17] MEDS: METOPROLOL TARTRATE 12.5 MG TAB PO SCH ×2 (10:05→21:30)
[2022-03-17] MEDS: PRASUGREL 10 MG TAB PO SCH (10:05)
--- NOTE | 2022-03-17 10:27 | CA ---
Transthoracic Echo Report Name: Siva Patricio Age: 46 Gender: M : 1975 Exam Date: 03/16/2022 13:24 Exam Location: [facility] Ht (in): 70 Wt (lb): 210 Ordering Physician: Radha Kerns Attending/Referring Phys: Farm Implement Mechanic Brenda Gillis RDCS Procedure CPT: Indications: stemi Cardiac Hx: Technical Quality: Fair Contrast 1: Total Dose (mL): Contrast 2: Total Dose (mL): MEASUREMENTS (Male / Female) Normal Values 2D ECHO LV Diastolic Diameter PLAX 4.5 cm 4.2 - 5.9 / 3.9 - 5.3 cm LV Systolic Diameter PLAX 3.5 cm IVS Diastolic Thickness 1.0 cm 0.6 - 1.0 / 0.6 - 0.9 cm LVPW Diastolic Thickness 1.1 cm 0.6 - 1.0 / 0.6 - 0.9 cm LV Relative Wall Thickness 0.5 RV Internal Dim ED PLAX 3.1 cm LA Volume 57.3 cm??? 18 - 58 / 22 - 52 cm??? M-MODE Aortic Root Diameter MM 3.1 cm LA Systolic Diameter MM 4.0 cm LA Ao Ratio MM 1.3 AV Cusp Separation MM 1.9 cm DOPPLER AV Peak Velocity 141.3 cm/s AV Peak Gradient 8.0 mmHg LVOT Peak Velocity 93.1 cm/s LVOT Peak Gradient 3.5 mmHg MV Area PHT 3.4 cm??? Mitral E Point Velocity 97.6 cm/s Mitral A Point Velocity 62.5 cm/s Mitral E to A Ratio 1.6 MV Deceleration Time 224.4 ms MV E' Velocity 9.2 cm/s Mitral E to MV E' Ratio 10.6 TR Peak Velocity 188.2 cm/s TR Peak Gradient 14.2 mmHg Right Ventricular Systolic Press 19.2 mmHg FINDINGS Left Ventricle Left ventricular cavity size normal. Left ventricular wall thickness normal. Left ventricular ejection fraction is estimated at 50 %. Hypokinetic inferior wall. Right Ventricle Normal right ventricular size and function. Right Atrium Normal right atrial size. Left Atrium Normal left atrial size. No evidence for an atrial septal defect. Mitral Valve Structurally normal mitral valve. No mitral stenosis. Mild to moderate mitral regurgitation. Aortic Valve No aortic valve stenosis or regurgitation. Tricuspid Valve Mild tricuspid regurgitation. Pulmonic Valve Trace pulmonic regurgitation. Pericardium No pericardial effusion. Aorta Normal size aortic root and proximal ascending aorta. CONCLUSIONS Low-normal left ventricular systolic function was EF around 50% [id number] mitral regurgitation Previewed by: Dr. Jesse Dickson MD (Electronically Signed) Final Date: 17 March 2022 10:27
--- NOTE | 2022-03-17 10:34 | P.PN ---
Subjective Progress Note Date: 03/17/22 Principal diagnosis: chest pain Patient is a 46-year-old male with history of acid reflux, tobacco abuse, and gallbladder dysfunction who presented to the hospital via EMS with chest pain. He was a code STEMI activation. 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 He was admitted to the ICU. He conitnued to do well. He was started on ASA, Effient, lipitor, and metoprolol. Patient seen and examined at bedside. No chest pain, no shortness of breath, no nausea, no vomiting. General: nontoxic, no distress, appears at stated age Derm: warm, dry Head: atraumatic, normocephalic, symmetric Eyes: EOMI, no lid lag, anicteric sclera Mouth: no lip lesion, mucus membranes moist Cardiovascular: S1S2 reg, no murmur, positive posterior tibial pulse bilateral, Lungs: CTA bilateral, no rhonchi, no rales , no accessory muscle use Abdominal: soft, nontender to palpation, no guarding, no appreciable organomegaly Ext: no gross muscle atrophy, no edema, no contractures Neuro: CN II-XI grossly intact, no focal neuro deficits Psych: Alert, oriented, appropriate affect Assessment/Plan: ST segment elevated myocardial infarction status post PCI to the RCA -Aspirin, Effient, Lipitor, Lopressor -Await echo -Await cholesterol profile and hemoglobin A1c -Telemetry -Cardiology recommendations GERD - PPI and H2 cora Tobacco abuse - cessation Anemia - mild and stable - outpatient evaluation. DVT prophylaxis: SCDs Discussed with: Patient, nursing Anticipated discharge: in AM Anticipated discharge place: home A total of 25 minutes was spent on the care of this complex patient more than 50% of the time was spent in counseling and care coordination. Objective - Vital Signs Vital signs: Vital Signs Temp 98.0 F 03/17/22 08:00 Pulse 65 03/17/22 07:00 Resp 21 03/17/22 08:00 BP 104/82 03/17/22 08:00 Pulse Ox 94 L 03/17/22 08:00 FiO2 Intake & Output 03/16/22 03/17/22 03/17/22 18:59 06:59 18:59 Intake Total 725 1645 0 Output Total 1600 0 Balance -875 1645 0 Weight 95.254 kg 97.5 kg Intake: IV 725 Sodium Chloride 0.9% 1, 225 000 ml @ 0 mls/hr IV [facility] Rx#:[id number] Intake, IV Titration 1045 0 Amount Sodium Chloride 0.9% 1, 1045 0 000 ml In Empty Bag 1 bag @ 1 ML/KG/HR 95.254 mls/ hr IV .[id number] [facility] Rx#: [id number] Oral 600 Output: Urine 1600 0 Other: Voiding Method Urinal Toilet Toilet # Voids 0 0 # Bowel Movements 1 - Labs CBC & Chem 7: 03/17/22 06:44 03/17/22 06:44 Labs: Abnormal Lab Results - Last 24 Hours (Table) 03/16/22 03/16/22 03/17/22 Range/Units 09:40 09:40 06:44 RBC 3.95 L (4.30-5.90) m/uL Hgb 12.6 L (13.0-17.5) gm/dL Hct 37.2 L (39.0-53.0) % Potassium 3.1 L (3.5-5.1) mmol/L Chloride 110 H (98-107) mmol/L Carbon Dioxide 20 L (22-30) mmol/L Glucose 119 H (74-99) mg/dL Calcium 8.0 L (8.4-10.2) mg/dL Troponin I 0.236 H* (0.000-0.034) ng/mL 03/17/22 Range/Units 06:44 RBC (4.30-5.90) m/uL Hgb (13.0-17.5) gm/dL Hct (39.0-53.0) % Potassium (3.5-5.1) mmol/L Chloride 110 H (98-107) mmol/L Carbon Dioxide (22-30) mmol/L Glucose 102 H (74-99) mg/dL Calcium (8.4-10.2) mg/dL Troponin I (0.000-0.034) ng/mL
[2022-03-17 11:20] LABS: Chol/HDL Ratio 4.94 Ratio; LDL Cholesterol,Calculated 113.4 mg/dL (0.0-131.0)
[2022-03-17] MEDS: ATORVASTATIN 80 MG TAB PO SCH (21:30)
[2022-03-18 03:49] VITALS: TEMP 98.1
[2022-03-18] MEDS: PANTOPRAZOLE 40 MG TABLET PO SCH (06:38)
[2022-03-18 07:20] VITALS: BP 111/75; PULSE 71; RESP 16
[2022-03-18] MEDS: PRASUGREL 10 MG TAB PO SCH (07:24)
[2022-03-18] MEDS: ASPIRIN 81 MG PO SCH (07:25)
[2022-03-18] MEDS: METOPROLOL TARTRATE 12.5 MG TAB PO SCH (07:25)
[2022-03-18] MEDS: FAMOTIDINE 20 MG TAB PO SCH (07:25)
--- NOTE | 2022-03-18 13:20 | P.PN ---
Subjective This is a 46 year old male with a past medical history of chronic tobacco use (smokes 1/2PPD). He does not follow with a general foreman regularly. He denies any cardiac history. He presents to the ER with complaints of chest pain. He was lying in bed this morning and began to have chest discomfort, he proceeded to have some mild shortness of breath and diaphoresis. EMS was called and patient was found to have ST elevation in inferior leads. Patient underwent cardiac catheterization which revealed 99% RCA stenosis and 30-40% mid LAD stenosis, grant lima underwent PCI to the RCA on 03/16/[address] Quinonez. Patient seen and examined at bedside, no acute distress. Denies any chest pain or shortness of breath. He is ambulating in his room with no difficulty. Echocardiogram revealed EF 50%, hypokinetic inferior wall. Mild to moderate mitral regurgitation. Vital signs are stable. He is currently maintained on dual antiplatelet therapy with aspirin and Effient., Metoprolol tartrate 12.5 mg twice a day, atorvastatin 80 mg nightly. GENERAL: Well-appearing, well-nourished and in no acute distress. NECK: Supple without JVD or thyromegaly. LUNGS: Breath sounds clear to auscultation bilaterally. Respiration equal and unlabored. No wheezes, rales or rhonchi. HEART: Regular rate and rhythm without murmurs, rubs or gallops. S1 and S2 h eard. EXTREMITIES: Normal range of motion, no edema. No clubbing or cyanosis. Peripheral pulses intact. ASSESSMENT Inferior STEMI, status post PCI RCA on 03/16/2022 Chronic tobacco use History of GERD Sinus bradycardia, asymptomatic PLAN From cardiology perspective, patient is to be discharged home. Discussed tobacco cessation and patient is agreeable Continue dual antiplatelet therapy with aspirin and Effient for at least 12 months Continue beta cora and statin. Patient follow up outpatient with Dr. Quinonez in one week Nurse Practitioner note has been reviewed, I agree with a documented findings and plan of care. Patient was seen and examined. Objective - Vital Signs Vital signs: Vital Signs Temp 98.1 F 03/18/22 07:20 Pulse 71 03/18/22 07:20 Resp 16 03/18/22 07:20 BP 111/75 03/18/22 07:20 Pulse Ox 98 03/18/22 07:20 FiO2 Intake & Output 03/17/22 03/18/22 03/18/22 18:59 06:59 18:59 Intake Total 1999 570 245 Output Total 0 Balance 1999 570 245 Intake: IV 5 Invasive Line 1 5 Intake, IV Titration 0 Amount Sodium Chloride 0.9% 1, 0 000 ml In Empty Bag 1 bag @ 1 ML/KG/HR 95.254 mls/ hr IV [id number] [facility] Rx#: [id number] Oral 1999 570 240 Output: Urine 0 Other: Voiding Method Toilet Toilet Toilet # Voids 2 1 1 # Bowel Movements 1 - Labs CBC & Chem 7: 03/17/22 06:44 03/17/22 06:44
--- NOTE | 2022-03-18 19:31 | P.DS ---
Providers Date of admission: 03/16/22 09:34 Expected date of discharge: 03/18/22 Attending physician: Makenzie Naidu DO Consults: 03/16/22 10:09 Consult Physician Routine Consulting Provider: [facility] Consult Reason/Comments: Post Interventional Patient Do you want consulting provider notified?: Already Contacted Primary care physician: Norman Deshpande [facility] Course: Discharge Diagnosis: ST segment elevated myocardial infarction status post PCI to the RCA GERD Tobacco abuse Anemia Hospital Course: Patient is a 46-year-old male with history of acid reflux, tobacco abuse, and gallbladder dysfunction who presented to the hospital via EMS with chest pain. He was a code STEMI activation. 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 He was admitted to the ICU. He continued to do well. He was started on ASA, Effient, lipitor, and metoprolol. He continued to do well. His echocardiogram showed a preserved ejection fraction of 50% with mild to moderate mitral regurgitation. His cholesterol profile is within normal limits. A1c was less than 5.7. Was therefore determined stable for discharge. Follow-up: Patient will remain off work until cleared by Dr. Quinonez, he will take medications as listed above. He'll also follow-up with Dr. Kyle next week. He was advised to stop smoking. Patient seen and examined at bedside. Denies any chest pain, shortness breath, nausea, vomiting Vital signs reviewed and stable. General: nontoxic, no distress, appears at stated age Derm: warm, dry Head: atraumatic, normocephalic, symmetric Eyes: EOMI, no lid lag, anicteric sclera Mouth: no lip lesion, mucus membranes moist Cardiovascular: S1S2 reg, no murmur, positive posterior tibial pulse bilateral, Lungs: CTA bilateral, no rhonchi, no rales , no accessory muscle use Abdominal: soft, nontender to palpation, no guarding, no appreciable organomegaly Ext: no gross muscle atrophy, no edema, no contractures Neuro: CN II-XI grossly intact, no focal neuro deficits Psych: Alert, oriented, appropriate affect A total of 32 minutes of time were spent preparing this complex discharge summary. Patient was discharged on 03/18/22. Patient Condition at Discharge: Stable Plan - Discharge Summary Discharge Rx Participant: Yes New Discharge Prescriptions: New Aspirin 81 mg PO DAILY #90 tab Atorvastatin [Lipitor] 80 mg PO HS #90 tab Nitroglycerin Sl Tabs [Nitrostat] 0.4 mg SUBLINGUAL Q5M PRN #25 tab PRN Reason: Chest Pain Prasugrel [Effient] 10 mg PO DAILY #90 tab Metoprolol Tartrate [Lopressor] 12.5 mg PO BID #60 tab Continue Omeprazole [PriLOSEC] 20 mg PO AC-BRKFST #14 cap Famotidine 40 mg PO DAILY Discharge Medication List Omeprazole [PriLOSEC] 20 mg PO AC-BRKFST #14 cap 05/13/21 [Rx] Famotidine 40 mg PO DAILY 03/16/22 [History] Aspirin 81 mg PO DAILY #90 tab 03/18/22 [Rx] Atorvastatin [Lipitor] 80 mg PO HS #90 tab 03/18/22 [Rx] Metoprolol Tartrate [Lopressor] 12.5 mg PO BID #60 tab 03/18/22 [Rx] Nitroglycerin Sl Tabs [Nitrostat] 0.4 mg SUBLINGUAL Q5M PRN #25 tab 03/18/22 [Rx] Prasugrel [Effient] 10 mg PO DAILY #90 tab 03/18/22 [Rx] Follow up Appointment(s)/Referral(s): Severiano Quinonez DO [STAFF PHYSICIAN] - 1 Week (Offices will call with an appointment date and time) Norman Kyle MD [Primary Care Provider] - 1-2 days (Please call to get a post hospital follow up appointment.) Patient Instructions/Handouts: Heart Attack (DC), Heart Healthy Diet (DC), Safe Use of Antiplatelet Medication (DC), After Radial Heart Catheterization (GEN) Activity/Diet/Wound Care/Special Instructions: Diet: heart healthy Special Instructions: You should remain off work until you see cardiology in the office. CARDIAC CATH --Watch for any excessive bruising, active bleeding, a firm knot forming under your skin, extreme tenderness and signs of infection (redness, swelling, fever). --Shower daily, do not soak puncture in a tub bath, jacuzzi, pool, hdez etc. for 1 week. This is to prevent risk of infection. --Drink plenty of fluids the day of and day after your procedure to flush contrast dye out of your kidneys. --Take all medications as directed. Never stop any new medication without your physicians OK. --No driving for 2 days after procedure. --5- pound weight lifting restriction for 1 week. *Heavy lifting can put stress on your wound and cause bleeding. Do not push or pull with the arm that was used for the procedure. Do not do vigorous activity for at least 48 hours. Vigorous activity may cause bleeding from your wound. Rest and do quiet activities. Take short walks around the house to prevent a blood clot. 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 Ask your healthcare provider when you can return to your normal activities. In case of any problems, please call [facility] [place] @ [phone] Discharge Disposition: HOME SELF-CARE
== END 2022-03-18 11:22 | disposition home or self-care (01) | DRG 247 ==
LOC: EC 09:16 → 2SICU 09:34 → 3SCARD 03-17 17:26
PROVIDERS: ADMIT Internal Medicine; ATTEND Internal Medicine
PROC: B2111ZZ Fluoroscopy of Multiple Coronary Arteries using Low Osmolar Contrast (ICD-10-PCS; principal; 2022-03-16 10:50)
PROC: 4A023N7 Measurement of Cardiac Sampling and Pressure, Left Heart, Percutaneous Approach (ICD-10-PCS; principal; 2022-03-16 10:50)
PROC: 027034Z Dilation of Coronary Artery, One Artery with Drug-eluting Intraluminal Device, Percutaneous Approach (ICD-10-PCS; principal; 2022-03-16 10:50)
DX: I21.19 ST elevation (STEMI) myocardial infarction involving other coronary artery of inferior wall (principal); D64.9 Anemia, unspecified; I25.10 Atherosclerotic heart disease of native coronary artery without angina pectoris; I34.0 Nonrheumatic mitral (valve) insufficiency; R00.1 Bradycardia, unspecified; K82.8 Other specified diseases of gallbladder; K21.9 Gastro-esophageal reflux disease without esophagitis; Z79.899 Other long term (current) drug therapy; F17.210 Nicotine dependence, cigarettes, uncomplicated; Z71.6 Tobacco abuse counseling; Z82.49 Family history of ischemic heart disease and other diseases of the circulatory system
CPT/HCPCS: 80048; 80061; 83036; 84132; 84484; 85025; 93306; 93458; 99285

== ENCOUNTER → 2022-06-28 | Outpatient (CLI) | payer BC ==
[2022-06-28 23:22] LABS: ALT 32 U/L (10-49); AST 26 U/L (14-35); Chol/HDL Ratio 2.63 Ratio; LDL Cholesterol,Calculated 72.2 mg/dL (0.0-131.0)
== END | disposition home or self-care (01) ==
LOC: LABWHC1 14:39
PROVIDERS: ATTEND Internal Medicine
DX: E78.2 Mixed hyperlipidemia (principal)
CPT/HCPCS: 36415; 80061; 84450; 84460

== ENCOUNTER 2022-08-07 23:08 | Observation (INO) | payer BC ==
[2022-08-07 23:12] VITALS: RESP 16
--- NOTE | 2022-08-07 23:14 | ED ---
General Adult HPI - General Chief complaint: Abdominal Pain Stated complaint: Chest Pain, Abdominal Pain Time Seen by Provider: 08/07/22 23:13 Source: patient, RN notes reviewed Mode of arrival: ambulatory Limitations: no limitations - History of Present Illness Initial comments: Patient is a 47-year-old male presenting to the emergency room with complaints of abdominal pain upper portions of his abdomen radiating posteriorly to the left flank region. He states that pain has been ongoing for 4 days and has been constant in nature. He reports nausea without emesis. He states that he has had normal bowel movements without any diarrhea mucus or blood in his stool. He primarily presents to the emergency room today due to the pain now radiating upwards into his chest. 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 He denies any shortness of breath, orthopnea, diaphoresis, headache, dizziness, fevers or chills. He has not taken any medications to treat his symptoms. He is unable to identify any aggravating or alleviating factors. He reports a history of gallbladder problems without previous cholecystectomy. In addition to his CAD and gallbladder issues he has past medical history significant for GERD as well. He is compliant with his home medications and has taken his effient, aspirin, and metoprolol today. He is also taking his medications for GERD as prescribed including his omeprazole and Pepcid without any changes in his abdominal pain over the last 4 days. - Related Data Home Medications Medication Instructions Recorded Confirmed Famotidine 40 mg PO DAILY 03/16/22 03/16/22 Previous Rx's Medication Instructions Recorded Omeprazole [PriLOSEC] 20 mg PO -BRKFST #14 cap 05/13/21 Aspirin 81 mg PO DAILY #90 tab 03/18/22 Atorvastatin [Lipitor] 80 mg PO HS #90 tab 03/18/22 Metoprolol Tartrate [Lopressor] 12.5 mg PO BID #60 tab 03/18/22 Nitroglycerin Sl Tabs [Nitrostat] 0.4 mg SUBLINGUAL Q5M PRN #25 tab 03/18/22 Prasugrel [Effient] 10 mg PO DAILY #90 tab 03/18/22 Allergies Allergy/AdvReac Type Severity Reaction Status Date / Time No Known Allergies Allergy Verified 03/16/22 09:28 Review of Systems ROS Statement: Those systems with pertinent positive or pertinent negative responses have been documented in the HPI. ROS Other: All systems not noted in ROS Statement are negative. Past Medical History Past Medical History: Coronary Artery Disease (CAD), GERD/Reflux, Myocardial Infarction ([place]) Additional Past Medical History / Comment(s): gall bladder issue, hernia, and cyst on kidney History of Any Multi-Drug Resistant Organisms: None Reported Past Surgical History: Ear Surgery, Heart Catheterization With Stent, Tonsillectomy Past Psychological History: No Psychological Hx Reported Smoking Status: Former smoker Past Alcohol Use History: None Reported Past Drug Use History: None Reported - Past Family History Brother(s) Family Medical History: Sleep Apnea/CPAP/BIPAP Sister(s) Family Medical History: Musculoskeletal Disorder Father Family Medical History: Cancer Mother Family Medical History: Hyperlipidemia Daughter(s) Family Medical History: No Reported History Son(s) Family Medical History: No Reported History General Exam Limitations: no limitations General appearance: alert, in no apparent distress Head exam: Present: atraumatic, normocephalic, normal inspection Eye exam: Present: normal appearance, PERRL, EOMI. Absent: scleral icterus, conjunctival injection, periorbital swelling ENT exam: Present: normal exam, mucous membranes moist Neck exam: Present: normal inspection, full ROM Respiratory exam: Present: normal lung sounds bilaterally. Absent: respiratory distress, wheezes, rales, rhonchi, stridor Cardiovascular Exam: Present: regular rate, normal rhythm, normal heart sounds. Absent: systolic murmur, diastolic murmur, rubs, gallop, clicks GI/Abdominal exam: Present: soft, tenderness (Bilateral upper quadrant), normal bowel sounds, hernia. Absent: distended, guarding, rebound, rigid Rectal exam: Present: deferred Extremities exam: Present: normal inspection. Absent: pedal edema, joint swelling Back exam: Present: normal inspection, CVA tenderness (L) Neurological exam: Present: alert, oriented X3, CN II-XII intact Psychiatric exam: Present: normal affect, normal mood Skin exam: Present: warm, dry, intact, normal color. Absent: rash Course Vital Signs 08/07/22 08/07/22 08/08/22 23:09 23:24 00:40 Temperature 97.3 F L 98.6 F Pulse Rate 75 66 62 Respiratory 16 16 16 Rate Blood Pressure 149/98 147/93 145/97 O2 Sat by Pulse 98 97 97 Oximetry Medical Decision Making - Medical Decision Making 47-year-old male presenting to the emergency room with complaints of upper abdominal pain ongoing for 4 days with nausea along with radiation into his chest which began today. Will workup for ACS along with abdominal pain. Will obtain EKG, chest x-ray, CAT scan of the abdomen and pelvis without contrast, CBC, CMP, amylase, lipase, troponin, proBNP along with COVID and influenza swabs. No need for anti-medics at this time will give morphine for pain and monitor. Will defer further PPI or antiplatelet treatment at this time. EKG interpreted by me shows normal sinus rhythm, chest x-ray image interpreted by me shows no acute cardiopulmonary disease. CT of the abdomen image interpreted by me showing no evidence of obstruction, free fluid in the abdomen or inflammation. Cholecystectomy clips intact. Pain continues despite morphine will give dose of Dilaudid along with 1 inch of Nitropaste. CBC unremarkable, CMP overall without any significant acute abnormalities proBNP normal, troponin negative, magnesium normal, COVID and influenza swabs negative. Amylase and lipase normal. Findings reviewed with patient. Discussed that in the setting of chest pain with known CAD with recent intervention recommend observation hospitalization for continued monitoring, patient agreeable for observation admission. Presentation workup and findings reviewed with Dr. Driver electrical installation supervisor for [facility] covering for patient's primary care provider. He is accepting of admission will place consult to cardiology along with order for repeat troponins. No further recommendation her orders received by Dr. Driver. Case discussed with Dr. Gao - Lab Data Result diagrams: 08/07/22 23:34 08/07/22 23:34 Lab Results 08/07/22 08/07/22 08/07/22 Range/Units 23:34 23:34 23:34 WBC 9.4 (3.8-10.6) k/uL RBC 4.46 (4.30-5.90) m/uL Hgb 14.1 (13.0-17.5) gm/dL Hct 40.2 (39.0-53.0) % MCV 90.1 (80.0-100.0) fL MCH 31.5 (25.0-35.0) pg MCHC 35.0 (31.0-37.0) g/dL RDW 12.8 (11.5-15.5) % Plt Count 187 (150-450) k/uL MPV 8.7 Neutrophils % 64 % Lymphocytes % 23 % Monocytes % 7 % Eosinophils % 2 % Basophils % 1 % Neutrophils # 6.0 (1.3-7.7) k/uL Lymphocytes # 2.2 (1.0-4.8) k/uL Monocytes # 0.7 (0-1.0) k/uL Eosinophils # 0.2 (0-0.7) k/uL Basophils # 0.0 (0-0.2) k/uL PT 10.5 (9.0-12.0) sec INR 1.0 (<1.2) APTT 24.8 (22.0-30.0) sec Sodium 144 (137-145) mmol/L Potassium 4.1 (3.5-5.1) mmol/L Chloride 108 H (98-107) mmol/L Carbon Dioxide 28 (22-30) mmol/L Anion Gap 8 mmol/L BUN 15 (9-20) mg/dL Creatinine 0.77 (0.66-1.25) mg/dL Est GFR (CKD-EPI)AfAm >90 (>60 ml/min/1.73 sqM) Est GFR (CKD-EPI)NonAf >90 (>60 ml/min/1.73 sqM) Glucose 109 H (74-99) mg/dL Calcium 9.3 (8.4-10.2) mg/dL Magnesium 1.9 (1.6-2.3) mg/dL Total Bilirubin 0.7 (0.2-1.3) mg/dL AST 31 (17-59) U/L ALT 31 (4-49) U/L Alkaline Phosphatase 100 (38-126) U/L Troponin I (0.000-0.034) ng/mL NT-Pro-B Natriuret Pep pg/mL Total Protein 7.3 (6.3-8.2) g/dL Albumin 4.6 (3.5-5.0) g/dL Amylase 54 (30-110) U/L Lipase 99 (23-300) U/L Coronavirus (PCR) (Not Detectd) Influenza Type A RNA (Not Detectd) Influenza Type B (PCR) (Not Detectd) 08/07/22 08/07/22 08/07/22 Range/Units 23:34 23:34 23:43 WBC (3.8-10.6) k/uL RBC (4.30-5.90) m/uL Hgb (13.0-17.5) gm/dL Hct (39.0-53.0) % MCV (80.0-100.0) fL MCH (25.0-35.0) pg MCHC (31.0-37.0) g/dL RDW (11.5-15.5) % Plt Count (150-450) k/uL MPV Neutrophils % % Lymphocytes % % Monocytes % % Eosinophils % % Basophils % % Neutrophils # (1.3-7.7) k/uL Lymphocytes # (1.0-4.8) k/uL Monocytes # (0-1.0) k/uL Eosinophils # (0-0.7) k/uL Basophils # (0-0.2) k/uL PT (9.0-12.0) sec INR (<1.2) APTT (22.0-30.0) sec Sodium (137-145) mmol/L Potassium (3.5-5.1) mmol/L Chloride (98-107) mmol/L Carbon Dioxide (22-30) mmol/L Anion Gap mmol/L BUN (9-20) mg/dL Creatinine (0.66-1.25) mg/dL Est GFR (CKD-EPI)AfAm (>60 ml/min/1.73 sqM) Est GFR (CKD-EPI)NonAf (>60 ml/min/1.73 sqM) Glucose (74-99) mg/dL Calcium (8.4-10.2) mg/dL Magnesium (1.6-2.3) mg/dL Total Bilirubin (0.2-1.3) mg/dL AST (17-59) U/L ALT (4-49) U/L Alkaline Phosphatase (38-126) U/L Troponin I <0.012 (0.000-0.034) ng/mL NT-Pro-B Natriuret Pep 229 pg/mL Total Protein (6.3-8.2) g/dL Albumin (3.5-5.0) g/dL Amylase (30-110) U/L Lipase (23-300) U/L Coronavirus (PCR) (Not Detectd) Influenza Type A RNA Not Detected (Not Detectd) Influenza Type B (PCR) Not Detected (Not Detectd) 08/07/22 Range/Units 23:43 WBC (3.8-10.6) k/uL RBC (4.30-5.90) m/uL Hgb (13.0-17.5) gm/dL Hct (39.0-53.0) % MCV (80.0-100.0) fL MCH (25.0-35.0) pg MCHC (31.0-37.0) g/dL RDW (11.5-15.5) % Plt Count (150-450) k/uL MPV Neutrophils % % Lymphocytes % % Monocytes % % Eosinophils % % Basophils % % Neutrophils # (1.3-7.7) k/uL Lymphocytes # (1.0-4.8) k/uL Monocytes # (0-1.0) k/uL Eosinophils # (0-0.7) k/uL Basophils # (0-0.2) k/uL PT (9.0-12.0) sec INR (<1.2) APTT (22.0-30.0) sec Sodium (137-145) mmol/L Potassium (3.5-5.1) mmol/L Chloride (98-107) mmol/L Carbon Dioxide (22-30) mmol/L Anion Gap mmol/L BUN (9-20) mg/dL Creatinine (0.66-1.25) mg/dL Est GFR (CKD-EPI)AfAm (>60 ml/min/1.73 sqM) Est GFR (CKD-EPI)NonAf (>60 ml/min/1.73 sqM) Glucose (74-99) mg/dL Calcium (8.4-10.2) mg/dL Magnesium (1.6-2.3) mg/dL Total Bilirubin (0.2-1.3) mg/dL AST (17-59) U/L ALT (4-49) U/L Alkaline Phosphatase (38-126) U/L Troponin I (0.000-0.034) ng/mL NT-Pro-B Natriuret Pep pg/mL Total Protein (6.3-8.2) g/dL Albumin (3.5-5.0) g/dL Amylase (30-110) U/L Lipase (23-300) U/L Coronavirus (PCR) Not Detected (Not Detectd) Influenza Type A RNA (Not Detectd) Influenza Type B (PCR) (Not Detectd) - EKG Data EKG Comments: EKG completed at 2316 interpreted by me showing sinus rhythm, ventricular rate 64 bpm, LA interval 162 ms, QRS duration 89 ms, QT/QTC 392/410 ms, PRT axes 26, 46, 40 - Radiology Data Radiology results: report reviewed, image reviewed CT of the abdomen and pelvis without contrast impression by radiologist no acute abnormalities of the abdomen pelvis. Stable right renal cortical cyst. Normal appendix. Chest x-ray 2 views impression by radiologist normal chest. Heart and mediastinum are normal. Lungs are clear. Diaphragm is normal. Disposition Clinical Impression: Chest pain, Abdominal pain Disposition: ADMITTED IP TO THIS HOSP Condition: Stable Is patient prescribed a controlled substance at d/c from ED?: No Referrals: Norman Kyle MD [Primary Care Provider] - 1-2 days Time of Disposition: 01:03
[2022-08-07] MEDS ORDERED: MORPHINE SULFATE 4 MG/ML SYRINGE IVP STA (23:37)
[2022-08-07 23:53] LABS: Basophils % (A) 1 %; Eosinophils # (A) 0.2 k/uL (0-0.7); Eosinophils % (A) 2 %; HCT 40.2 % (39.0-53.0); HGB 14.1 gm/dL (13.0-17.5); Lymphocytes # (A) 2.2 k/uL (1.0-4.8); Lymphocytes % (A) 23 %; MCH 31.5 pg (25.0-35.0); MCV 90.1 fL (80.0-100.0); Mean Platelet Volume 8.7; Monocytes # (A) 0.7 k/uL (0-1.0); Monocytes % (A) 7 %; Neutrophils % (A) 64 %; Platelet Count 187 k/uL (150-450); RBC 4.46 m/uL (4.30-5.90); RDW 12.8 % (11.5-15.5); WBC 9.4 k/uL (3.8-10.6)
[2022-08-08 00:03] LABS: Partial Thromboplastin Time 24.8 sec (22.0-30.0); Prothrombin Time 10.5 sec (9.0-12.0)
--- NOTE | 2022-08-08 00:06 | XR ---
EXAMINATION TYPE: XR chest 2V DATE OF EXAM: 08/07/2022 COMPARISON: NONE HISTORY: Chest pain TECHNIQUE: 2 view FINDINGS: Heart and mediastinum are normal. Lungs are clear. Diaphragm is normal. Bony thorax is inta ct IMPRESSION: Normal chest.
--- NOTE | 2022-08-08 00:18 | CT ---
EXAMINATION TYPE: CT abdomen pelvis wo con DATE OF EXAM: 08/07/2022 COMPARISON: 05/12/2021 HISTORY: Abdominal pain x [address] DLP: 863.2 mGycm Automated exposure control for dose reduction was used. Images obtained from the diaphragm to the floor the pelvis with no contrast. There is mild subsegmental atelectasis at the lung bases. Heart size is normal. No pericardial effusi on. Liver spleen stomach pancreas appear intact. The bile ducts are not dilated. There are clips from cholecystectomy. There is no adrenal mass. Kidneys of normal size. No hydronephrosis. Ureters are not dilated. No retr operitoneal adenopathy. Appendix is posterior and appears normal. The bladder distends smoothly. No i nguinal hernia. No free fluid in the pelvis. No pelvic mass. There are a few sigmoid diverticula. No diverticulitis. There is irregular 3 x 2 cm cyst on the lateral right kidney. The lumbar vertebra have normal alignment. There is disc space narrowing at L5-S1. The bony pelvis is intact. The hip joints are intact. Sacroiliac joints are intact. There is no mesenteric edema. No as cites or free air. No sign of a bowel obstruction. IMPRESSION: No acute abnormality of the abdomen and pelvis. Stable right renal cortical cyst. Normal appendix.
[2022-08-08 00:32] LABS: ALT 31 U/L (4-49); AST 31 U/L (17-59); African American GFR (CKD) >90 (>60 ml/min/1.73 sqM); Albumin 4.6 g/dL (3.5-5.0); Alkaline Phosphatase 100 U/L (38-126); Amylase 54 U/L (30-110); Anion Gap 8 mmol/L; Blood Urea Nitrogen 15 mg/dL (9-20); Calcium 9.3 mg/dL (8.4-10.2); Carbon Dioxide 28 mmol/L (22-30); Chloride 108 mmol/L (98-107); Glucose 109 mg/dL (74-99); Lipase 99 U/L (23-300); Magnesium 1.9 mg/dL (1.6-2.3); Non-African American GFR(CKD) >90 (>60 ml/min/1.73 sqM); Potassium 4.1 mmol/L (3.5-5.1); Sodium 144 mmol/L (137-145); Total Bilirubin 0.7 mg/dL (0.2-1.3); Total Protein 7.3 g/dL (6.3-8.2)
[2022-08-08] MEDS ORDERED: NITROGLYCERIN OINT 1 INCH/GM PACKET TOPICAL STA (00:43)
[2022-08-08] MEDS ORDERED: HYDROmorphone 1 MG/ML 1 ML SYRINGE IVP STA (00:43)
[2022-08-08] MEDS ORDERED: NALOXONE 0.4 MG/ML 1 ML VIAL IV PRN (01:04)
[2022-08-08] MEDS ORDERED: HYDROmorphone 1 MG/ML 1 ML SYRINGE IVP PRN (01:04)
[2022-08-08] MEDS ORDERED: ONDANSETRON 4 MG/2 ML VIAL IVP PRN (01:04)
--- NOTE | 2022-08-08 05:25 | P.HPIM ---
History of Present Illness H&P Date: 08/08/22 Chief Complaint: abd pain 47 year old male with CAD s/p stents patient coming in due to abd pain of 2-4 days duration , comes and goes, not related to food, diffuse vague discomfort, no associated diarrhea, constipation or GI bleeding no nausea or vomiting, no known sick contact today while at work , he suddenly started experiencing central chest pain non radiating, sharp pain 8/10 in severity with SOB , dizziness and cold sweat. denies any nausea or vomiting. this is similar to what he experienced couple months ago when he had his heart attack, at that time, he also started with abd pain and was evaluated in the ED and told he was OK , then a week later he had a heat attack, so patient is adamant to get seen by cardiology no recent travel , no history of blood clots, claims to be complaint with his meds, denies any Sick contact. denies any fever chills, trauma, denies any coughing, or URI symptoms no changes in urinary or bowel habit changes blood work unremarkable EKG no acute ST changes denies tobacco smoking, illicit drugs or alcohol Review of Systems Pertinent positives as noted in HPI. All other systems were reviewed and are negative Past Medical History Past Medical History: Coronary Artery Disease (CAD), GERD/Reflux, Myocardial Infarction ([place]) Additional Past Medical History / Comment(s): gall bladder issue, hernia, and cyst on kidney History of Any Multi-Drug Resistant Organisms: None Reported Past Surgical History: Ear Surgery, Heart Catheterization With Stent, Tonsillectomy Past Psychological History: No Psychological Hx Reported Smoking Status: Former smoker Past Alcohol Use History: None Reported Past Drug Use History: None Reported - Past Family History Brother(s) Family Medical History: Sleep Apnea/CPAP/BIPAP Sister(s) Family Medical History: Musculoskeletal Disorder Father Family Medical History: Cancer Mother Family Medical History: Hyperlipidemia Daughter(s) Family Medical History: No Reported History Son(s) Family Medical History: No Reported History Medications and Allergies Home Medications Medication Instructions Recorded Confirmed Type Omeprazole [PriLOSEC] 20 mg PO AC-BRKFST #14 cap 05/13/21 03/16/22 Rx Famotidine 40 mg PO DAILY 03/16/22 03/16/22 History Aspirin 81 mg PO DAILY #90 tab 03/18/22 Rx Atorvastatin [Lipitor] 80 mg PO HS #90 tab 03/18/22 Rx Metoprolol Tartrate [Lopressor] 12.5 mg PO BID #60 tab 03/18/22 Rx Nitroglycerin Sl Tabs [Nitrostat] 0.4 mg SUBLINGUAL Q5M PRN #25 tab 03/18/22 Rx Prasugrel [Effient] 10 mg PO DAILY #90 tab 03/18/22 Rx Allergies Allergy/AdvReac Type Severity Reaction Status Date / Time No Known Allergies Allergy Verified 03/16/22 09:28 Physical Exam Vitals: Vital Signs Temp Pulse Resp BP Pulse Ox 08/08/22 03:56 64 16 114/78 96 08/08/22 02:53 66 16 119/80 98 08/08/22 01:57 64 16 128/80 97 08/08/22 00:40 62 16 145/97 97 08/07/22 23:24 98.6 F 66 16 147/93 97 08/07/22 23:09 97.3 F L 75 16 149/98 98 Intake and Output 08/07/22 08/07/22 08/08/22 14:59 22:59 06:59 Other: Weight 97.522 kg Constitutional: No acute distress, conversant, pleasant Eyes: Anicteric sclerae, moist conjunctiva, Pupils equal round reactive to light ENMT: NC/AT Oropharynx clear, no erythema, or exudates Neck: Supple, no masses, or JVD No carotid bruits No thyromegaly Lungs: Clear to auscultation Clear to percussion Normal respiratory effort, no accessory muscle use Cardiovascular: Heart regular in rate and rhythm, No murmurs, gallops, or rubs No peripheral edema Abdominal: Soft Nontender, no guarding, rebound or rigidity Abdomen moving with respiration Normoactive bowel sounds No hepatomegaly, No splenomegaly No palpable mass No abdominal wall hernia noted Skin: Normal temperature, tone, texture, turgor No induration No subcutaneous nodules No rash, lesions No ulcers Extremities: No digital cyanosis No clubbing Pedal pulses intact and symmetrical Radial pulses intact and symmetrical No calf tenderness Psychiatric: Alert and oriented to person, place and time Appropriate affect fair judgement Neuro Muscles Strength 5/5 in all 4 extremities Sensation to light touch grossly present throughout Cranial nerves II-XII grossly intact Lymphatics: no palpable cervical or supraclavicular lymph nodes Results CBC & Chem 7: 08/07/22 23:34 08/07/22 23:34 Labs: Abnormal Lab Results - Last 24 Hours (Table) 08/07/22 Range/Units 23:34 Chloride 108 H (98-107) mmol/L Glucose 109 H (74-99) mg/dL Assessment and Plan Assessment: atypical chest pain rule out ACS EKG no acute changes CXR no acute pathology trops negative X2 cardiac rn monitor vital signs ASA, statin cardiology consult resume effient pain control CT abd no acute pathology full code DVT PPX heparin sc tid
[2022-08-08] MEDS ORDERED: PANTOPRAZOLE 40 MG TABLET PO SCH (07:30)
--- NOTE | 2022-08-08 08:06 | P.CRDCN ---
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 He follows in the office with Dr. Quinonez. We have been asked to see in consultation for chest pain. Patient presents to the emergency department with complaints of abdominal pain and back pain for over a week. He states yesterday he was at work and had right-sided chest discomfort. Describes as a constant pressure/pain. He denies some pain in his shoulders. He denies any associated symptoms. He states this pain is similar from his prior MT however he had no associated symptoms this time. In the ER patient was given nitro. He states it did help improve some of his pain. He denies any shortness of breath, nausea, diaphoresis, lightheadedness, dizziness, palpitations. He is currently chest pain-free. Denies current tobacco use. He states he is compliant with his medication. Troponin drawn in the ER negative x 2. EKG with no evidence of acute ischemia DIAGNOSTICS * EKG reveals sinus rhythm, heart 64, no significant STT wave abnormalities suggesting acute ischemia * Echocardiogram March 2022 revealed EF 50%, hypokinetic inferior wall, mild to moderate mitral regurgitation * Last Cardiac Catheterization 03/2022 revealed coronary artery disease with 90% RCA stenosis, 3040 percent mid LAD stenosis, patient underwent PCI to the mid RCA. * Telemetry tracings indicate sinus rhythm * Chest xray no acute cardiopulmonary process. * Laboratory reviewed, troponin negative 2, CBC unremarkable, sodium 144, potassium 4.1, BUN 15, serum creatinine 0.77, magnesium 1.9, proBNP 229 * Current home medications include Effient 10 mg daily, metoprolol tartrate 12.5 mg twice a day, atorvastatin 80 mg nightly, aspirin 81 mg daily REVIEW OF SYSTEMS At the time of my exam patient's chest pain has resolved CONSTITUTIONAL: Denies fever or chills. CARDIOVASCULAR: Denies chest pain, shortness of breath, orthopnea, PND or palpitations. RESPIRATORY: Denies cough. GASTROINTESTINAL: Denies abdominal pain, diarrhea, constipation, nausea or vomiting. MUSCULOSKELETAL: Denies myalgias. NEUROLOGIC: Denies numbness, tingling, headache or weakness. ENDOCRINE: Denies fatigue, weight change, polydipsia or polyurina. GENITOURINARY: Denies burning, hematuria or urgency with micturation. HEMATOLOGIC: Denies history of anemia or bleeding. PHYSICAL EXAMINATION Blood pressure 110/83, heart rate 62, afebrile, saturation 90% on room air CONSTITUTIONAL: No apparent distress. HEENT: Head is normocephalic. Pupils are equal, round. Sclerae anicteric. Mucous membranes of the mouth are moist. No JVD. No carotid bruit. CHEST EXAMINATION: Lungs are clear to auscultation. No chest wall tenderness is noted on palpation or with deep breathing. HEART EXAMINATION: Regular rate and rhythm. S1, S2 heard. Systolic ejection murmur at apex, no gallops or rub. ABDOMEN: Soft, nontender. Positive bowel sounds. EXTREMITIES: 2+ peripheral pulses, no lower extremity edema and no calf tenderness. SKIN: Warm, dry NEUROLOGIC EXAMINATION: Patient is awake, alert and oriented x3. ASSESSMENT Chest pain, acute coronary syndrome has ruled out History of inferior STEMI 03/2022 status post PCI to the RCA Former tobacco use GERD Hypertension Dyslipidiemia PLAN An acute coronary event has been ruled out with no EKG evidence of ischemia and negative cardiac enzymes. Perform exercise stress test to assess for stress induced cardiac ischemia. If abnormal will consider coronary angiography. Hold metoprolol prior to stress test Continue aspirin, statin, and Effient If stress test negative for stress induced ischemia, ok to discharge from a cardiology perspective and recommend patient follow up outpatient with Dr. Quinonez Thank you kindly for this consultation. Nurse practitioner note has been reviewed by physician. Signing provider agrees with the documented findings, assessment, and plan of care. Past Medical History Past Medical History: Coronary Artery Disease (CAD), GERD/Reflux, Myocardial Infarction (MT) Additional Past Medical History / Comment(s): gall bladder issue, hernia, and cyst on kidney History of Any Multi-Drug Resistant Organisms: None Reported Past Surgical History: Ear Surgery, Heart Catheterization With Stent, Tonsillectomy Past Psychological History: No Psychological Hx Reported Smoking Status: Former smoker Past Alcohol Use History: None Reported Past Drug Use History: None Reported - Past Family History Brother(s) Family Medical History: Sleep Apnea/CPAP/BIPAP Sister(s) Family Medical History: Musculoskeletal Disorder Father Family Medical History: Cancer Mother Family Medical History: Hyperlipidemia Daughter(s) Family Medical History: No Reported History Son(s) Family Medical History: No Reported History Medications and Allergies Home Medications Medication Instructions Recorded Confirmed Type Omeprazole [PriLOSEC] 20 mg PO AC-BRKFST #14 cap 05/13/21 08/08/22 Rx Famotidine 40 mg PO HS 03/16/22 08/08/22 History Aspirin 81 mg PO DAILY #90 tab 03/18/22 08/08/22 Rx Atorvastatin [Lipitor] 80 mg PO HS #90 tab 03/18/22 08/08/22 Rx Metoprolol Tartrate [Lopressor] 12.5 mg PO BID #60 tab 03/18/22 08/08/22 Rx Nitroglycerin Sl Tabs [Nitrostat] 0.4 mg SUBLINGUAL Q5M PRN #25 tab 03/18/22 08/08/22 Rx Prasugrel [Effient] 10 mg PO DAILY #90 tab 03/18/22 08/08/22 Rx Sucralfate [Carafate] 1 gm PO BID PRN 08/08/22 08/08/22 History Allergies Allergy/AdvReac Type Severity Reaction Status Date / Time No Known Allergies Allergy Verified 08/08/22 07:14 Physical Exam Vitals: Vital Signs Temp Pulse Resp BP Pulse Ox 08/08/22 06:41 98.6 F 62 16 110/83 98 08/08/22 06:14 62 16 105/69 100 08/08/22 03:56 64 16 114/78 96 08/08/22 02:53 66 16 119/80 98 08/08/22 01:57 64 16 128/80 97 08/08/22 00:40 62 16 145/97 97 08/07/22 23:24 98.6 F 66 16 147/93 97 08/07/22 23:09 97.3 F L 75 16 149/98 98 Intake and Output 08/07/22 08/08/22 08/08/22 22:59 06:59 14:59 Other: Weight 97.522 kg Results 08/07/22 23:34 08/07/22 23:34 Cardiac Enzymes 08/07/22 08/07/22 08/08/22 Range/Units 23:34 23:34 02:32 AST 31 (17-59) U/L Troponin I <0.012 <0.012 (0.000-0.034) ng/mL Coagulation 08/07/22 Range/Units 23:34 PT 10.5 (9.0-12.0) sec APTT 24.8 (22.0-30.0) sec CBC 08/07/22 Range/Units 23:34 WBC 9.4 (3.8-10.6) k/uL RBC 4.46 (4.30-5.90) m/uL Hgb 14.1 (13.0-17.5) gm/dL Hct 40.2 (39.0-53.0) % Plt Count 187 (150-450) k/uL Comprehensive Metabolic Panel 08/07/22 Range/Units 23:34 Sodium 144 (137-145) mmol/L Potassium 4.1 (3.5-5.1) mmol/L Chloride 108 H (98-107) mmol/L Carbon Dioxide 28 (22-30) mmol/L BUN 15 (9-20) mg/dL Creatinine 0.77 (0.66-1.25) mg/dL Glucose 109 H (74-99) mg/dL Calcium 9.3 (8.4-10.2) mg/dL AST 31 (17-59) U/L ALT 31 (4-49) U/L Alkaline Phosphatase 100 (38-126) U/L Total Protein 7.3 (6.3-8.2) g/dL Albumin 4.6 (3.5-5.0) g/dL Current Medications Generic Name Dose Route Start Last Admin Trade Name Freq PRN Reason Stop Dose Admin Aspirin 81 mg 08/08/22 09:00 Aspirin 81 Mg PO DAILY [facility] Atorvastatin Calcium 80 mg 08/08/22 21:00 Atorvastatin 80 Mg Tab PO HS [facility] Famotidine 40 mg 08/08/22 09:00 Famotidine 20 Mg Tab PO DAILY [facility] Hydromorphone HCl 1 mg 08/08/22 01:04 Hydromorphone 1 Mg/Ml 1 Ml Syringe IVP Q3HR PRN Severe Pain (Scale 7 to 10) Metoprolol Tartrate 12.5 mg 08/08/22 09:00 Metoprolol Tartrate 12.5 Mg Tab PO BID [facility] Naloxone HCl 0.2 mg 08/08/22 01:04 Naloxone 0.4 Mg/Ml 1 Ml Vial IV Q2M PRN Opioid Reversal Ondansetron HCl 4 mg 08/08/22 01:04 Ondansetron 4 Mg/2 Ml Vial IVP Q8HR PRN Nausea And Vomiting Pantoprazole Sodium 40 mg 08/08/22 07:30 08/08/22 06:39 Pantoprazole 40 Mg Tablet PO 40 mg AC-BRKFST [facility] Administration Prasugrel 10 mg 08/08/22 09:00 Prasugrel 10 Mg Tab PO DAILY [facility] Intake and Output 08/07/22 08/08/22 08/08/22 22:59 06:59 14:59 Other: Weight 97.522 kg 08/07/22 23:34 08/07/22 23:34
[2022-08-08] MEDS ORDERED: ASPIRIN 81 MG PO SCH (09:00)
[2022-08-08] MEDS ORDERED: FAMOTIDINE 20 MG TAB PO SCH (09:00)
[2022-08-08] MEDS ORDERED: METOPROLOL TARTRATE 12.5 MG TAB PO SCH ×2 (09:00→21:00)
[2022-08-08] MEDS ORDERED: PRASUGREL 10 MG TAB PO SCH (09:00)
--- NOTE | 2022-08-08 13:03 | CA ---
Exercise Stress Test Report Name: Siva Patricio Exam Date: 08/08/2022 08:35 Exam Location: [place] Stress Ht (in): 70 Wt (lb): 215 BSA: 2.15 Ordering Phys: Radha Kerns Referring Phys: YMII,, Technologist: Georgi Medellin Age: 47 Gender: M : 1975 Procedure CPT: Indications: Chest Pain ICD-10 Codes: Patient History: CHEST PAIN, HTN, ELEVATED CHOLESTEROL LEVELS, FAMILY HX OF HEART DISEASE. FORMER SMOKER - QUIT 5 MONTHS AGO. PRIOR ME, CARDIAC CATH WITH 1 STENT Medications: Meds past 24 hrs: Pretest Chest Pain: STRESS TEST [place] Protocol Exercise Duration (min:sec): 10:[address] Depressions (mm): Angina Score: Billy Score: Resting HR (bpm): 81 Peak HR (bpm): 166 Resting BP (mmHg): 118 / 84 Peak BP (mmHg): 138 / 78 MPHR: 174 Target HR: 148 % MPHR: 95 METS: 12.1 Total Dose: Peak Dose: Atropine: Double Product: 03999 BP Response: Stress Termination: TARGET HR REACHED/MAX EXERTION Stress Symptoms: NO SYMPTOMS Stress Summary: ECG ANALYSIS Resting ECG: Stress ECG: CONCLUSIONS Excellent exercise tolerance Normal EKG in response to exercise Dr. Jesse Dickson MD (Electronically Signed) Final Date: 08 August 2022 13:02
--- NOTE | 2022-08-08 14:19 | P.DS ---
Providers Date of admission: 08/08/22 00:48 Expected date of discharge: 08/08/22 Attending physician: Frantz Driver MD Consults: 08/08/22 01:04 Consult Physician Routine Consulting Provider: Severiano Quinonez Consult Reason/Comments: chest pain Do you want consulting provider notified?: Yes Primary care physician: Norman Deshpande [facility] Course: Discharge Diagnosis: Chest pain, acute coronary event ruled out. Troponins negative at less than 0.0123 draws. Stress test revealed excellent exercise tolerance and normal EKG response to exercise. Acute coronary event has been ruled out cardiology recommending outpatient follow-up in their office in 10 days. Recommend continuing daily medication regimen with aspirin, atorvastatin, Effient, and metoprolol. Hypertension, stable on current medication regimen. Monitor vital signs and continue daily medication regimen with metoprolol. GERD, continue daily medication regimen with omeprazole each morning, Pepcid each night, and Carafate as needed for heartburn. Hyperlipidemia, continue daily medication regimen with atorvastatin. History of CAD with previous stenting, continue to follow up outpatient with cardiology as discussed and continue cardiac medication regimen with aspirin, atorvastatin, Effient, and metoprolol. Hospital Course: Patient is a very pleasant 47-year-old male with a past medical history of CAD status post stent, hypertension, and hyperlipidemia. He presented to the emergency department with a chief complaint of epigastric/chest pain accompanied by nausea. CBC, coags, and BMP unremarkable. Liver profile unremarkable and amylase and lipase also normal findings with amylase of 54 and lipase of 99. Troponin negative at less than 0.012. Covid PCR, influenza A, and influenza B were all negative. EKG showing normal sinus rhythm at 64 bpm with no noted T wave or ST abnormality showing no signs of acute ischemia. Chest x-ray negative for acute cardiopulmonary process. CT abdomen and pelvis without contrast was negative for acute abnormality of the abdomen and pelvis with a stable right renal cortical cyst. Patient admitted under our services with consultation to cardiology. Patient monitored overnight and troponins remain negative at less than 0.0123 draws. Patient reports being free from any chest/epigastric pain or discomfort at this time. Cardiology evaluated into patient for exercise stress test. Stress test revealing excellent exercise tolerance and normal EKG and response to exercise. Cardiology recommending no further inpatient testing at this time. Medically patient is stable and stable for discharge home. No medication changes were made during this hospitalization. Patient to follow up outpatient with his PCP in 1-2 days and with cardiology in 10 days as directed. Physical exam: Patient seen and examined at bedside. Vital signs reviewed and stable. General: Nontoxic, no distress and appears stated age. Derm: Skin warm and dry, normal coloration for ethnicity. Head: Atraumatic, normocephalic and symmetric. Eyes: EOMs intact, no lid lag, and anicteric sclera Mouth: no lip lesions, mucus membranes moist Cardiovascular: regular rate and rhythm with normal S1S2, no murmur, positive posterior tibial pulses bilaterally, and cap refill < 2 seconds. Lungs: Respirations even, regular, and unlabored on room air. Lungs CTA bilaterally, no rhonchi, no rales, no wheezing, and no accessory muscle usage. Abdominal: soft, nontender to palpation, no guarding, no appreciable organomegaly Ext: ROM intact. No gross muscle atrophy, no edema, no contractures Neuro: Speech clear, face symmetrical and CN II-XII grossly intact with no noted focal neuro deficits Psych: Alert and oriented to person, place, time, and situation. Appropriate and pleasant affect. A total of 33 minutes of time were spent preparing this complex discharge summary. Pt was discharged on 08/08/22 at 2:13 PM. Hector Schreiber NP rendered care for this patient independently, reviewed the findings and plan as documented in the note above. I did not physically speak with or examine the patient on this date. Patient Condition at Discharge: Stable Plan - Discharge Summary New Discharge Prescriptions: Continue Omeprazole [PriLOSEC] 20 mg PO AC-BRKFST #14 cap Aspirin 81 mg PO DAILY #90 tab Atorvastatin [Lipitor] 80 mg PO HS #90 tab Nitroglycerin Sl Tabs [Nitrostat] 0.4 mg SUBLINGUAL Q5M PRN #25 tab PRN Reason: Chest Pain Sucralfate [Carafate] 1 gm PO BID PRN PRN Reason: Heartburn Famotidine 40 mg PO HS Prasugrel [Effient] 10 mg PO DAILY #90 tab Metoprolol Tartrate [Lopressor] 12.5 mg PO BID #60 tab Discharge Medication List Omeprazole [PriLOSEC] 20 mg PO AC-BRKFST #14 cap 05/13/21 [Rx] Famotidine 40 mg PO HS 03/16/22 [History] Aspirin 81 mg PO DAILY #90 tab 03/18/22 [Rx] Atorvastatin [Lipitor] 80 mg PO HS #90 tab 03/18/22 [Rx] Metoprolol Tartrate [Lopressor] 12.5 mg PO BID #60 tab 03/18/22 [Rx] Nitroglycerin Sl Tabs [Nitrostat] 0.4 mg SUBLINGUAL Q5M PRN #25 tab 03/18/22 [Rx] Prasugrel [Effient] 10 mg PO DAILY #90 tab 03/18/22 [Rx] Sucralfate [Carafate] 1 gm PO BID PRN 08/08/22 [History] Follow up Appointment(s)/Referral(s): Severiano Quinonez DO [STAFF PHYSICIAN] - 08/16/22 2:30 pm Norman Kyle MD [Primary Care Provider] - 1-2 days Patient Instructions/Handouts: Chest Pain (DC), GERD (Gastroesophageal Reflux Disease) (DC) Activity/Diet/Wound Care/Special Instructions: Activity: As tolerated. Take breaks as needed. Diet: Heart healthy and carb consistent diet. Avoid salts, or foods with hidden salts such as canned or boxed foods and frozen dinners. Extra salt makes your heart work harder and traps the fluid in your body for longer. Special Instructions: Take all of your medications as directed and remember to keep all of your doctor's appointments and follow-up as needed. Thank you for allowing us to participate in your care, it was truly a pleasure having you for our patient!!! Discharge Disposition: HOME SELF-CARE
[2022-08-08 15:22] VITALS: BP 123/77; PULSE 78; TEMP 98
[2022-08-08] MEDS ORDERED: ATORVASTATIN 80 MG TAB PO SCH (21:00)
[2022-08-09] MEDS ORDERED: ENOXAPARIN 40 MG/0.4 ML SYRINGE SQ SCH (09:00)
== END 2022-08-08 16:03 | disposition home or self-care (01) ==
LOC: EC 23:08 → 6NMEDSUR 08-08 00:48
PROVIDERS: ADMIT Internal Medicine; ATTEND Internal Medicine
DX: R07.89 Other chest pain (principal); I25.10 Atherosclerotic heart disease of native coronary artery without angina pectoris; I25.2 Old myocardial infarction; K21.9 Gastro-esophageal reflux disease without esophagitis; I10 Essential (primary) hypertension; E78.5 Hyperlipidemia, unspecified; Z87.891 Personal history of nicotine dependence; Z95.5 Presence of coronary angioplasty implant and graft; Z79.899 Other long term (current) drug therapy; Z79.82 Long term (current) use of aspirin; Z79.02 Long term (current) use of antithrombotics/antiplatelets; Z20.822 Contact with and (suspected) exposure to COVID-19
CPT/HCPCS: 96374; 96375; 99285; 36415; 93005; 93017; 83880; 80053; 82150; 83690; 83735; 84484 ×2; 85025; 85610; 85730; 87502; 87635; 71046; 74176; G0378; J2270; J1170

== ENCOUNTER → 2022-09-07 | Outpatient (CLI) | payer BC ==
--- NOTE | 2022-09-07 12:56 | NM ---
EXAMINATION TYPE: NM hepatobiliary w EF DATE OF EXAM: 09/07/2022 11:56 AM COMPARISON: CT abdomen pelvis most recent from 08/07/2022 and 05/12/2021. CLINICAL INDICATION:Male, 47 years old with history of R10.9 abdominal pain; TECHNIQUE: The patient was given 4.2 mCi of Technetium 99m-Mebrofenin as a radiotracer and multiple scintigraphic images were obtained of the abdomen. A region of interest was not drawn over the gallbl adder given no definitive gallbladder filling. The gallbladder ejection fraction was not calculated. FINDINGS: Normal uptake of radiotracer was identified within the liver with excretion into the hepatic and comm on biliary ducts within 120 seconds . There was normal progressive washout of the liver over the cour se of the study. Radiotracer was not definitively seen within the gallbladder. The gallbladder is con tracted on both priors on 05/12/2021 and 08/07/2022 CT is, there is some bowel activity was identified at 240 seconds. IMPRESSION: Overall the gallbladder was not definitively visualized. There was quick filling of the extrahepatic biliary system seen around 240 which did not definitively get larger on delayed imaging. When compari ng to prior CTs and has a contracted appearance which is in close proximity to the extrahepatic bilia ry system. This could represent a chronically contracted gallbladder given some calcifications within the wall seen on prior CTs. Overall gallbladder did not definitively fill and the ejection fraction was not able to be calculated with any degree of confidence. Correlate for acute cholecystitis.
== END | disposition home or self-care (01) ==
LOC: RADNMMAIN 06:58
PROVIDERS: ATTEND Family Medicine
DX: K82.8 Other specified diseases of gallbladder (principal); R10.9 Unspecified abdominal pain
CPT/HCPCS: 78226; A9537

== ENCOUNTER 2022-09-09 18:27 | Emergency (ER) | payer OTHER, BC ==
[2022-09-09 18:58] VITALS: BP 180/78; TEMP 98
--- NOTE | 2022-09-09 21:28 | ED ---
Burn/Smoke HPI - General Chief complaint: Burn/Smoke Inhalation Stated complaint: Chemical burn, [facility] Time Seen by Provider: 09/09/22 21:10 Source: patient, RN notes reviewed Mode of arrival: ambulatory Limitations: no limitations - History of Present Illness Initial comments: This is a pleasant, [id number] 47-year-old male who presents to the e mergency department after having his right hand and fingers exposed to a chemical at work. Patient states he uses a rust proofing compound called FERROCOTE. Patient states he's had reactions before to the same chemical however this seems to be worse. Patient was using vinyl gloves but still had the reaction. Describing a burning and itching type discomfort to the hands and fingers. It is not circumferential. Distal sensation is intact. Patient's tetanus status is up-to-date. Patient is a former cigarette smoker. No other injuries. No headache, no fever or chills, no changes in vision or hearing, no sore throat or difficulty with speech, no neck pain, no chest pain or shortness of breath, no abdominal pain, no nausea or vomiting, no changes in urination or bowel movements, no numbness or tingling, no skin rashes or lesions. Past medical, surgical, social, and family history reviewed. MD Complaint: chemical exposure - Related Data Home Medications Medication Instructions Recorded Confirmed Famotidine 40 mg PO HS 03/16/22 08/08/22 Sucralfate [Carafate] 1 gm PO BID PRN 08/08/22 08/08/22 Previous Rx's Medication Instructions Recorded Omeprazole [PriLOSEC] 20 mg PO AC-BRKFST #14 cap 05/13/21 Aspirin 81 mg PO DAILY #90 tab 03/18/22 Atorvastatin [Lipitor] 80 mg PO HS #90 tab 03/18/22 Metoprolol Tartrate [Lopressor] 12.5 mg PO BID #60 tab 03/18/22 Nitroglycerin Sl Tabs [Nitrostat] 0.4 mg SUBLINGUAL Q5M PRN #25 tab 03/18/22 Prasugrel [Effient] 10 mg PO DAILY #90 tab 03/18/22 Allergies Allergy/AdvReac Type Severity Reaction Status Date / Time No Known Allergies Allergy Verified 08/08/22 07:14 Review of Systems ROS Statement: Those systems with pertinent positive or pertinent negative responses have been documented in the HPI. ROS Other: All systems not noted in ROS Statement are negative. Past Medical History Past Medical History: Coronary Artery Disease (CAD), GERD/Reflux, Myocardial Infarction ([place]) Additional Past Medical History / Comment(s): gall bladder issue, hernia, and cyst on kidney Last Myocardial Infarction Date:: march 2022 History of Any Multi-Drug Resistant Organisms: None Reported Past Surgical History: Ear Surgery, Heart Catheterization With Stent, Tonsillectomy Date of Last Stent Placement:: march 2022 Past Psychological History: No Psychological Hx Reported Smoking Status: Former smoker Past Alcohol Use History: None Reported Past Drug Use History: None Reported - Past Family History Brother(s) Family Medical History: Sleep Apnea/CPAP/BIPAP Sister(s) Family Medical History: Musculoskeletal Disorder Father Family Medical History: Cancer Mother Family Medical History: Hyperlipidemia Daughter(s) Family Medical History: No Reported History Son(s) Family Medical History: No Reported History General Exam Limitations: no limitations General appearance: alert, in no apparent distress Head exam: Present: atraumatic, normocephalic, normal inspection Eye exam: Present: normal appearance, EOMI ENT exam: Present: normal exam Neck exam: Present: normal inspection Respiratory exam: Present: normal lung sounds bilaterally. Absent: respiratory distress, wheezes, rales, rhonchi, stridor Cardiovascular Exam: Present: regular rate, normal rhythm, normal heart sounds. Absent: systolic murmur, diastolic murmur, rubs, gallop, clicks GI/Abdominal exam: Absent: distended Right Elbow exam: Present: normal inspection, full ROM. Absent: tenderness Forearm Wrist exam: Present: normal inspection, full ROM. Absent: tenderness Hand Wrist exam: Present: full ROM, erythema, other (Patient does have some blistering with erythema noted to the third, fourth, and fifth fingers of the right hand. These are not circumferential lemus. Minimal skin break downthe dorsum of the right fourth finger. No evidence of secondary infection. Capil michele refill is normal. Distal sensation in). Absent: abrasion, laceration, ecchymosis, deformity, crepitus, dislocation, amputation, subungual hematoma Neuro motor exam: Present: wrist extension intact, thumb opposition intact, thumb IP flexion intact, thumb adduction intact, fingers 2-5 abduction intact Neurosensory exam: Present: radial nerve intact, ulnar nerve intact, median nerve intact Vascular: Present: normal capillary refill. Absent: vascular compromise, Pallo, pulse deficit radial art, pulse deficit ulnar art Back exam: Present: normal inspection Neurological exam: Present: alert, oriented X3, CN II-XII intact. Absent: motor sensory deficit Psychiatric exam: Present: normal affect, normal mood Skin exam: Present: warm, dry, intact (As above), normal color, erythema (As above). Absent: rash, cyanosis, diaphoretic Course Vital Signs 09/09/22 18:52 Temperature 98 F Pulse Rate 78 Respiratory 16 Rate Blood Pressure 180/78 O2 Sat by Pulse 96 Oximetry Medical Decision Making - Medical Decision Making Was pt. sent in by a medical professional or institution? @ -Patient sent by his employer Did you speak to anyone other than the patient for history? @ -no Did you review nursing and triage notes? @ -Agree Were old charts reviewed? @ -no Differential Diagnosis? @ -Chemical burn, partial thickness first full thickness versus circumferential. What meds were considered but not given? Why? @ -I did consider Benadryl, patient deferred this medication. Patient states he'll take [id number] acetaminophen/ibuprofen and Benadryl at home. Did you discuss the management of the patient with other professionals? @ -no Did you reconcile home meds? @ -[none] Was smoking cessation discussed for >3mins.? @ -Former smoker Was patient admitted / discharged? @ -Patient presented with an isolated chemical burn to the right hand, to include the dorsum of the third, fourth, and fifth fingers. Not circumferential. I did have the patient wash his hand for several minutes with soap and water. I did review the material safety data sheet which basically advised removing the skin from the irritating product and washing with soap and water. Have the patient follow-up with [facility] tomorrow morning. Discussed this treatment plan with the patient. Patient voices understanding. Undiagnosed new problem with uncertain prognosis? @ -[none] Drug Therapy requiring intensive monitoring for toxicity (Heparin, Nitro, Insulin, Cardizem)? @ -[none] Were any procedures done? @ -[none] Diagnosis/symptom? @ -Superficial chemical burn, right hand and fingers, non-circumferential Acute, or Chronic, or Acute on Chronic? @ -Acute Uncomplicated (without systemic symptoms) or Complicated (systemic symptoms)? @ -, Uncomplicated Side effects of treatment? @ -[none] Exacerbation, Progression, or Severe Exacerbation] @ -[no] Poses a threat to life or bodily function? @ -[Unlikely Patient was told to return to the ER for any signs or symptoms worsen. Told to return immediately if any other problems arise. All questions answered. Treatment plan discussed. Patient in agreement Every effort has been made to ensure accuracy of this dictation. However, due to the limitations of electronic medical records and dictation devices, errors in charting still occur. Supervising physician Dr. Simpson Disposition Clinical Impression: Superficial chemical burn of multiple fingers of right hand excluding thumb Disposition: HOME SELF-CARE Condition: Good Instructions (If sedation given, give patient instructions): Chemical Skin Burn (ED) Additional Instructions: [facility] for reevaluation. He frame from use of the offending chemical, FERROCOTE until reevaluation. Follow-up with your regular physician as directed. Return to the ER immediately if any symptoms worsen, new symptoms arise, or any other problems develop. Is patient prescribed a controlled substance at d/c from ED?: No Referrals: Luigi Floyd DO [STAFF PHYSICIAN] - 09/09/22 9:00 am Time of Disposition: 21:28
[2022-09-09 21:35] VITALS: PULSE 82; RESP 18
== END 2022-09-09 21:35 | disposition home or self-care (01) ==
LOC: EC 18:27
DX: T23.7 Corrosion of third degree of wrist and hand (principal); I25.10 Atherosclerotic heart disease of native coronary artery without angina pectoris; I25.2 Old myocardial infarction; Z87.891 Personal history of nicotine dependence
CPT/HCPCS: 99283

== ENCOUNTER 2022-09-15 20:28 | Observation (INO) | payer BC ==
--- NOTE | 2022-09-15 21:47 | XR ---
EXAMINATION TYPE: XR KUB DATE OF EXAM: 09/15/2022 9:30 PM CLINICAL HISTORY: Abdominal pain, vomiting TECHNIQUE: 2 upright views COMPARISON: None. FINDINGS: Scattered gas is seen in non-distended small bowel loops. Gas and fecal material is seen in non-distended colon. Colonic stool volume is normal. There is no visceromegaly, pneumoperitoneum, or abnormal calcification appreciated. The lung bases are clear and the osseous structures are intact. IMPRESSION: No acute radiographic process.
[2022-09-15 22:14] LABS: Basophils # (A) 0.1 k/uL (0-0.2); Basophils % (A) 1 %; Eosinophils # (A) 0.3 k/uL (0-0.7); Eosinophils % (A) 3 %; Lymphocytes # (A) 2.2 k/uL (1.0-4.8); Lymphocytes % (A) 24 %; MCHC 34.1 g/dL (31.0-37.0); MCV 90.7 fL (80.0-100.0); Mean Platelet Volume 8.3; Monocytes # (A) 0.7 k/uL (0-1.0); Monocytes % (A) 7 %; Neutrophils # (A) 5.7 k/uL (1.3-7.7); Neutrophils % (A) 63 %; Platelet Count 262 k/uL (150-450); RBC 4.52 m/uL (4.30-5.90); RDW 12.3 % (11.5-15.5); WBC 9.1 k/uL (3.8-10.6)
[2022-09-15 22:23] LABS: ALT 51 U/L (4-49); AST 48 U/L (17-59); African American GFR (CKD) >90 (>60 ml/min/1.73 sqM); Albumin 4.6 g/dL (3.5-5.0); Alkaline Phosphatase 98 U/L (38-126); Amylase 60 U/L (30-110); Anion Gap 10 mmol/L; Blood Urea Nitrogen 12 mg/dL (9-20); Calcium 9.2 mg/dL (8.4-10.2); Carbon Dioxide 25 mmol/L (22-30); Chloride 109 mmol/L (98-107); Glucose 96 mg/dL (74-99); Lipase 85 U/L (23-300); Non-African American GFR(CKD) >90 (>60 ml/min/1.73 sqM); Potassium 3.9 mmol/L (3.5-5.1); Sodium 144 mmol/L (137-145); Total Bilirubin 0.6 mg/dL (0.2-1.3); Total Protein 7.5 g/dL (6.3-8.2)
[2022-09-16] MEDS ORDERED: SODIUM CHLORIDE 0.9% 1,000 ML IV ONE (00:53)
[2022-09-16] MEDS ORDERED: ONDANSETRON 4 MG/2 ML VIAL IVP STA (00:53)
[2022-09-16] MEDS ORDERED: MORPHINE SULFATE 4 MG/ML SYRINGE IVP STA (00:53)
[2022-09-16 01:08] LABS: Appearance,Urine Clear (Clear); Bilirubin,Urine Negative (Negative); Blood,Urine Negative (Negative); Color,Urine Yellow; Glucose,Urine (UA) Negative (Negative); Ketones,Urine 1+ (Negative); Leukocyte Esterase,Urine Negative (Negative); Nitrite,Urine Negative (Negative); Protein,Urine Trace (Negative); Urobilinogen,Urine <2.0 mg/dL (<2.0)
--- NOTE | 2022-09-16 02:50 | ED ---
General Adult HPI - General Chief complaint: Abdominal Pain Stated complaint: Chest/back pain Time Seen by Provider: 09/16/22 00:43 Source: patient Mode of arrival: ambulatory Limitations: no limitations - History of Present Illness Initial comments: This is a 47-year-old male with a past medical history including previous gallbladder issues and pain as well as hypertension presents emergency department for generalized abdominal pain. The patient stated this abdominal pain has been severe and stabbing in nature and has been present since approximately 1430 today. The patient stated that the pain is so severe he needed to come to the emergency department and did have an episode of nausea and vomiting. The patient was undergoing previous testing and evaluation for gallbladder issues and did undergo four-hour radiation test earlier in the week however they did not know the test nor the results of it. The patient however wasn't continued pain and stated that there was no one specific area and his abdomen. The patient however denied any current nausea, vomiting as well as any fevers and chills. - Related Data Home Medications Medication Instructions Recorded Confirmed Famotidine 40 mg PO HS 03/16/22 08/08/22 Sucralfate [Carafate] 1 gm PO BID PRN 08/08/22 08/08/22 Previous Rx's Medication Instructions Recorded Omeprazole [PriLOSEC] 20 mg PO AC-BRKFST #14 cap 05/13/21 Aspirin 81 mg PO DAILY #90 tab 03/18/22 Atorvastatin [Lipitor] 80 mg PO HS #90 tab 03/18/22 Metoprolol Tartrate [Lopressor] 12.5 mg PO BID #60 tab 03/18/22 Nitroglycerin Sl Tabs [Nitrostat] 0.4 mg SUBLINGUAL Q5M PRN #25 tab 03/18/22 Prasugrel [Effient] 10 mg PO DAILY #90 tab 03/18/22 Allergies Allergy/AdvReac Type Severity Reaction Status Date / Time No Known Allergies Allergy Verified 08/08/22 07:14 Review of Systems ROS Statement: Those systems with pertinent positive or pertinent negative responses have been documented in the HPI. ROS Other: All systems not noted in ROS Statement are negative. Past Medical History Past Medical History: Coronary Artery Disease (CAD), GERD/Reflux, Myocardial Infarction ([place]) Additional Past Medical History / Comment(s): gall bladder issue, hernia, and cyst on kidney Last Myocardial Infarction Date:: march 2022 History of Any Multi-Drug Resistant Organisms: None Reported Past Surgical History: Ear Surgery, Heart Catheterization With Stent, Tonsillectomy Date of Last Stent Placement:: march 2022 Past Psychological History: No Psychological Hx Reported Smoking Status: Former smoker Past Alcohol Use History: None Reported Past Drug Use History: None Reported - Past Family History Brother(s) Family Medical History: Sleep Apnea/CPAP/BIPAP Sister(s) Family Medical History: Musculoskeletal Disorder Father Family Medical History: Cancer Mother Family Medical History: Hyperlipidemia Daughter(s) Family Medical History: No Reported History Son(s) Family Medical History: No Reported History General Exam Limitations: no limitations General appearance: alert, in distress (Secondary to generalized abdominal pain) Head exam: Present: atraumatic, normocephalic, normal inspection Eye exam: Present: normal appearance, PERRL Pupils: Present: normal accommodation ENT exam: Present: normal exam, normal oropharynx, mucous membranes moist Neck exam: Present: normal inspection, full ROM Respiratory exam: Present: normal lung sounds bilaterally Cardiovascular Exam: Present: regular rate, normal rhythm, normal heart sounds GI/Abdominal exam: Present: tenderness (Generalized tenderness to palpation in all quadrants) Extremities exam: Present: normal inspection, full ROM, normal capillary refill Back exam: Present: normal inspection, full ROM Neurological exam: Present: alert, oriented X3, CN II-XII intact Psychiatric exam: Present: normal affect, normal mood Skin exam: Present: warm, dry Course Vital Signs 09/15/22 21:12 Temperature 98 F Pulse Rate 69 Respiratory 16 Rate Blood Pressure 146/92 O2 Sat by Pulse 99 Oximetry EKG Findings - EKG Comments: EKG Findings:: An EKG was obtained and was interpreted by myself. EKG showed a rate of 62, ND interval 167 and QRS duration of 93. QTC was 416. This EKG showed a normal sinus rhythm with no ST segment elevations or depressions noted. Medical Decision Making - Medical Decision Making Was pt. sent in by a medical professional or institution (, PA, TEST OPERATOR, urgent care, hospital, or jail...) When possible be specific @ -No Did you speak to anyone other than the patient for history (EMS, parent, family, police, friend...)? What history was obtained from this source @ -No Did you review nursing and triage notes (agree or disagree)? Why? @ -I reviewed and agree with nursing and triage notes Were old charts reviewed (outside hosp., previous admission, EMS record, old EKG, old radiological studies, urgent care reports/EKG's, jail records)? Report findings @ -No old charts were reviewed Differential Diagnosis (chest pain, altered mental status, abdominal pain women, abdominal pain men, vaginal bleeding, weakness, fever, dyspnea, syncope, hea dache, dizziness, GI bleed, back pain, seizure, CVA, palpatations, mental health)? @ -Acute cholecystitis, appendicitis, small bowel obstruction EKG interpreted by me (3pts min.). @ -As above X-rays interpreted by me (1pt min.). @ -None done CT interpreted by me (1pt min.). @ -CT of the abdomen and pelvis was obtained and was interpreted by myself and was negative for any acute pathology. U/S interpreted by me (1pt. min.). @ -None done What testing was considered but not performed or refused? (CT, X-rays, U/S, labs)? Why? @ -None What meds were considered but not given or refused? Why? @ -None Did you discuss the management of the patient with other professionals (professionals i.e. , PA, TEST OPERATOR, lab, RT, psych nurse, social sciences instructor, journeyman glazier, teacher, financial administration officer, dependency case manager)? Give summary @ -Yes, initially the surgeon on-call Dr. Ferrell was contacted regarding the patient. Because the patient was arty established patient of , he suggests that the other surgeon be contacted regarding disposition. Multiple attempts to contact Dr. Alamo was attempted and was finally successful at 0540. She did not provide significant recommendations however stated that she would be able to see the patient and evaluate the patient at approximate 4:00 PM later this evening. Was smoking cessation discussed for >3mins.? @ -No Was critical care preformed (if so, how long)? @ -No Were there social determinants of health that impacted care today? How? (Homelessness, low income, unemployed, alcoholism, drug addiction, transportation, low edu. Level, literacy, decrease access to med. care, correction, rehab)? @ -No Was there de-escalation of care discussed even if they declined (Discuss DNR or withdrawal of care, Hospice)? DNR status @ -No What co-morbidities impacted this encounter? (DM, HTN, Smoking, COPD, CAD, Cancer, CVA, ARF, Chemo, Hep., AIDS, mental health diagnosis, sleep apnea, morbid obesity)? @ -Previous cardiac stent, hypertension Was patient admitted / discharged? Hospital course, mention meds given and route, prescriptions, significant lab abnormalities, going to OR and other p ertinent info. @ -The patient was seen and evaluated emergency department. Physical exam, the patient was resting in bed with abdominal pain. Vital signs were stable. Due to the nature the patient's abdominal pain, CT abdomen and pelvis was obtained however was negative. The patient did continue to remain and abdominal pain despite pain medications. Due to the patient's intractable abdominal pain, the surgeon on-call was initially contacted however he advised to contact the patient's previous helenay established surgeon. The patient did have a possible cholecystectomy scheduled with Dr. Alamo next week and therefore she was contacted. She did state that she was able to see the patient later this afternoon. The patient was placed in observation for intractable abdominal pain was accepted by Dr. Van at 0547. The patient was told of this plan and was agreeable. The patient was placed in observation in stable condition. Undiagnosed new problem with uncertain prognosis? @ -No Drug Therapy requiring intensive monitoring for toxicity (Heparin, Nitro, Insulin, Cardizem)? @ -No Were any procedures done? @ -No Diagnosis/symptom? @ -Abdominal pain, hospice secondary to cholecystitis Acute, or Chronic, or Acute on Chronic? @ -Acute on chronic Uncomplicated (without systemic symptoms) or Complicated (systemic symptoms)? @ -Complicated Side effects of treatment? @ -No Exacerbation, Progression, or Severe Exacerbation? @ -No Poses a threat to life or bodily function? How? (Chest pain, [place], [place], pneumonia, PE, COPD, DKA, ARF, appy, cholecystitis, CVA, Diverticulitis, Homicidal, Suicidal, threat to staff... and all critical care pts) @ -No - Lab Data Result diagrams: 09/15/22 22:03 09/15/22 22:03 Lab Results 09/15/22 09/15/22 09/16/22 Range/Units 22:03 22:03 00:41 WBC 9.1 (3.8-10.6) k/uL RBC 4.52 (4.30-5.90) m/uL Hgb 14.0 (13.0-17.5) gm/dL Hct 41.0 (39.0-53.0) % MCV 90.7 (80.0-100.0) fL MCH 31.0 (25.0-35.0) pg MCHC 34.1 (31.0-37.0) g/dL RDW 12.3 (11.5-15.5) % Plt Count 262 (150-450) k/uL MPV 8.3 Neutrophils % 63 % Lymphocytes % 24 % Monocytes % 7 % Eosinophils % 3 % Basophils % 1 % Neutrophils # 5.7 (1.3-7.7) k/uL Lymphocytes # 2.2 (1.0-4.8) k/uL Monocytes # 0.7 (0-1.0) k/uL Eosinophils # 0.3 (0-0.7) k/uL Basophils # 0.1 (0-0.2) k/uL Sodium 144 (137-145) mmol/L Potassium 3.9 (3.5-5.1) mmol/L Chloride 109 H (98-107) mmol/L Carbon Dioxide 25 (22-30) mmol/L Anion Gap 10 mmol/L BUN 12 (9-20) mg/dL Creatinine 0.84 (0.66-1.25) mg/dL Est GFR (CKD-EPI)AfAm >90 (>60 ml/min/1.73 sqM) Est GFR (CKD-EPI)NonAf >90 (>60 ml/min/1.73 sqM) Glucose 96 (74-99) mg/dL Calcium 9.2 (8.4-10.2) mg/dL Total Bilirubin 0.6 (0.2-1.3) mg/dL AST 48 (17-59) U/L ALT 51 H (4-49) U/L Alkaline Phosphatase 98 (38-126) U/L Total Protein 7.5 (6.3-8.2) g/dL Albumin 4.6 (3.5-5.0) g/dL Amylase 60 (30-110) U/L Lipase 85 (23-300) U/L Urine Color Yellow Urine Appearance Clear (Clear) Urine pH 5.0 (5.0-8.0) Ur Specific [place] 1.030 (1.001-1.035) Urine Protein Trace H (Negative) Urine Glucose (UA) Negative (Negative) Urine Ketones 1+ H (Negative) Urine Blood Negative (Negative) Urine Nitrite Negative (Negative) Urine Bilirubin Negative (Negative) Urine Urobilinogen <2.0 (<2.0) mg/dL Ur Leukocyte Esterase Negative (Negative) Disposition Clinical Impression: Intractable abdominal pain Disposition: ADMITTED IP TO THIS HOSP Condition: Stable Is patient prescribed a controlled substance at d/c from ED?: No Referrals: Norman Kyle MD [Primary Care Provider] - 1-2 days Time of Disposition: 05:40 Decision to Admit Reason: Admit from EC Decision Date: 09/16/22 Decision Time: 05:40
--- NOTE | 2022-09-16 03:05 | CT ---
EXAMINATION TYPE: CT abdomen pelvis w con DATE OF EXAM: 09/16/2022 COMPARISON: 08/07/2022 HISTORY: Acute abdominal pain CT DLP: 1306.3 mGycm Automated exposure control for dose reduction was used. CONTRAST: Performed with IV Contrast, patient injected with 100ml mL of Isovue 300. Images obtained from the diaphragm to the floor the pelvis with the IV contrast. There is some mild increased interstitial density in the posterior lung bases. No pulmonary consolida tion. No pleural effusion. Heart size is normal. No pericardial effusion. Liver spleen and stomach pancreas appear intact. There is absent gallbladder. No adrenal mass. Kidneys show satisfactory contrast opacification. No hydronephrosis. Ureters are not dilated. There is a 3 cm cortical cyst lateral right kidney. Unchanged. No retroperitoneal adenopath y. The bladder distends smoothly. No inguinal hernia. No free fluid in the pelvis. No pelvic mass. Th e appendix is posterior and appears normal. Terminal ileum appears normal. There is no mesenteric edema. No ascites or free air. No sign of a bowel obstruction. The lumbar vert ebra appear intact. There is vacuum disc at L5-S1 with disc space narrowing. No compression fracture. The bony pelvis is intact. The hip joints are intact. Sacroiliac joints are intact. IMPRESSION: Negative exam. Normal appendix. No renal stone or obstruction. Minimal interstitial density at the lung bases without change.
[2022-09-16] MEDS ORDERED: MORPHINE SULFATE 4 MG/ML SYRINGE IV PRN (05:48)
[2022-09-16] MEDS ORDERED: NALOXONE 0.4 MG/ML 1 ML VIAL IV PRN (05:48)
[2022-09-16] MEDS ORDERED: SUCRALFATE 1 GM TAB PO PRN (06:30)
[2022-09-16] MEDS ORDERED: NITROGLYCERIN SL TABS 0.4 MG TAB SUBLINGUAL PRN (06:30)
[2022-09-16] MEDS: ASPIRIN 81 MG PO SCH (08:03)
[2022-09-16] MEDS: PANTOPRAZOLE 40 MG TABLET PO SCH (08:03)
--- NOTE | 2022-09-16 11:08 | US ---
EXAMINATION TYPE: US abdomen limited DATE OF EXAM: 09/16/2022 COMPARISON: NONE CLINICAL HISTORY: RUQ pain. TECHNIQUE: Multiple sonographic images of the right upper quadrant are obtained. FINDINGS: EXAM MEASUREMENTS: Liver Length: 12.7 cm Gallbladder Wall: not visualized CBD: 0.7 cm Right Kidney: 10.4 x 5.4 x 5.9cm PLATE WORKER NOTES: Patient has had no abdominal surgeries. He does have his gallbladder. Pancreas: Obscured by bowel gas Liver: limited visualization shows no obvious mass Gallbladder: limited visualization of gallbladder area due to overlying bowel gas, there is a possibl e gallbladder with ASHLI sign Evidence for sonographic Mendiola's sign: no CBD: dilated Right Kidney: complex cyst measuring 2.2 x 3.1 x 2.3cm IMPRESSION: 1. Limited examination due to bowel gas. 2. Possible gallstone or cholecystitis. Correlate with symptoms. 3. Complex cyst right kidney. Follow-up is recommended
[2022-09-16] MEDS: METOPROLOL TARTRATE 12.5 MG TAB PO SCH ×2 (12:24→21:04)
[2022-09-16] MEDS: PRASUGREL 10 MG TAB PO SCH (12:25)
--- NOTE | 2022-09-16 13:44 | P.GSCN ---
History of Present Illness Consult date: 09/16/22 History of present illness: CHIEF COMPLAINT: Abdominal pain HISTORY OF PRESENT ILLNESS: This is a 47-year-old male who presented to Hospital complaints of right-sided upper and lower abdominal pain. He reports that pain started around 2:30 yesterday afternoon. Initially, he is rating his pain about an 8 out of 10 has come down to a 5 out of 10. He reports that he has been having this pain intermittently for the last few years. He is having flatus. Denies any change in bowel habits. Patient did have a HIDA scan in August of this year and gallbladder was not definitively visualized. Patient had a myocardial infarction in March with heart catheterization and stent placement. He is currently on Effient. Patient denies any fever chills or sweats. PAST MEDICAL HISTORY: See list. PAST SURGICAL HISTORY: See list. MEDICATIONS: See list. ALLERGIES: See list. SOCIAL HISTORY: No illicit drug use. REVIEW OF SYSTEMS: CONSTITUTIONAL: Denies fever or chills. HEENT: Denies blurred vision, vision changes, or eye pain. Denies hemoptysis ENDOCRINE: Denies heat or cold intolerance. CARDIOVASCULAR: Denies chest pain or pressure. RESPIRATORY: No shortness of breath. GASTROINTESTINAL: Please refer to HPI NEURO: Denies history of seizures. PSYCH: No depression or suicidal ideation HEMATOLOGIC: Denies bleeding disorders. LYMPHATIC: The patient denies any lumps and bumps around the neck. GENITOURINARY: Denies any blood in urine or increased urinary frequency. MUSCULOSKELETAL: Denies myalgias. Denies joint swelling. Denies decreased range of motion beyond patients baseline. SKIN: Denies pruitis. Denies rash. PHYSICAL EXAM: VITAL SIGNS: Reviewed GENERAL: Well-developed in no acute distress. HEENT: No sclera icterus. Extraocular movements grossly intact. Moist buccal mucosa. Head is atraumatic, normocephalic. Hears conversational speech. No nasal drainage. NECK: Supple without lymphadenopathy. CHEST: Non-labored respirations and equal bilateral excursions. CARDIOVASCULAR: Palpable 2+ radial pulses. ABDOMEN: Soft. Nondistended. Tenderness in the right upper abdomen and right lower abdomen MUSCULOSKELETAL: No clubbing or cyanosis. NEUROLOGIC: No focal or lateralizing signs. Cranial nerves II through XII grossly intact. PSYCH: Appropriate affect. Alert and oriented to person, place and time. SKIN: Well perfused. Good skin turgor. LABORATORY DATA: WBC is 9.1 Hgb 14 platelets 262 Sodium is 144 potassium is 3.9 creatinine 0.84 Total bilirubin 0.6 AST 48 ALT 51 alk phos 98 Lipase 85 IMAGING: Computed tomography scan abdomen and pelvis negative exam. Normal appendix. No renal stone or obstruction. Minimal interstitial density at the lung bases without change. HIDA scan from 09/07/2022 overall the gallbladder was not definitively visualized. There was quick filling of the extrahepatic biliary system. This could represent a chronically contracted gallbladder given some calcifications within the wall seen on prior CTs. Overall gallbladder did not definitively fill in the EF was not able to be calculated with any degree of confidence per radiology. Correlate for acute cholecystitis. ASSESSMENT: 1. Right upper quadrant and right lower quadrant abdominal pain 2. History of myocardial infarction with coronary disease and cardiac stent placement in March 2022 PLAN: -Abdominal ultrasound ordered for further evaluation of gallbladder and right upper quadrant abdominal pain -Consult cardiology for cardiac risk assessment due to patient's history of heart attack with stent and being on Effient. -Continue supportive care -Further recommendations forthcoming Physician Art Preparator note has been reviewed by physician. Signing provider agrees with the documented findings, assessment, and plan of care. Past Medical History Past Medical History: Coronary Artery Disease (CAD), GERD/Reflux, Myocardial Infarction ([place]) Additional Past Medical History / Comment(s): gall bladder issue, hernia, and cyst on kidney Last Myocardial Infarction Date:: march 2022 History of Any Multi-Drug Resistant Organisms: None Reported Past Surgical History: Ear Surgery, Heart Catheterization With Stent, Tonsillectomy Date of Last Stent Placement:: march 2022 Past Psychological History: No Psychological Hx Reported Smoking Status: Former smoker Past Alcohol Use History: None Reported Past Drug Use History: None Reported - Past Family History Brother(s) Family Medical History: Sleep Apnea/CPAP/BIPAP Sister(s) Family Medical History: Musculoskeletal Disorder Father Family Medical History: Cancer Mother Family Medical History: Hyperlipidemia Daughter(s) Family Medical History: No Reported History Son(s) Family Medical History: No Reported History Medications and Allergies Home Medications Medication Instructions Recorded Confirmed Type Omeprazole [PriLOSEC] 20 mg PO AC-BRKFST #14 cap 05/13/21 09/16/22 Rx Famotidine 40 mg PO HS 03/16/22 09/16/22 History Aspirin 81 mg PO DAILY #90 tab 03/18/22 09/16/22 Rx Atorvastatin [Lipitor] 80 mg PO HS #90 tab 03/18/22 09/16/22 Rx Metoprolol Tartrate [Lopressor] 12.5 mg PO BID #60 tab 03/18/22 09/16/22 Rx Nitroglycerin Sl Tabs [Nitrostat] 0.4 mg SUBLINGUAL Q5M PRN #25 tab 03/18/22 09/16/22 Rx Prasugrel [Effient] 10 mg PO DAILY #90 tab 03/18/22 09/16/22 Rx Sucralfate [Carafate] 1 gm PO BID PRN 08/08/22 09/16/22 History Cephalexin [Keflex] 500 mg PO Q6HR 09/16/22 09/16/22 History Allergies Allergy/AdvReac Type Severity Reaction Status Date / Time No Known Allergies Allergy Verified 09/16/22 06:41 Surgical - Exam Vital Signs Temp Pulse Resp BP Pulse Ox 98 F 69 16 146/92 99 09/15/22 21:12 09/15/22 21:12 09/15/22 21:12 09/15/22 21:12 09/15/22 21:12 Results - Labs 09/15/22 22:03 09/15/22 22:03 Abnormal Lab Results - Last 24 Hours (Table) 09/15/22 09/16/22 Range/Units 22:03 00:41 Chloride 109 H (98-107) mmol/L ALT 51 H (4-49) U/L Urine Protein Trace H (Negative) Urine Ketones 1+ H (Negative) Diabetes panel 09/15/22 Range/Units 22:03 Sodium 144 (137-145) mmol/L Potassium 3.9 (3.5-5.1) mmol/L Chloride 109 H (98-107) mmol/L Carbon Dioxide 25 (22-30) mmol/L BUN 12 (9-20) mg/dL Creatinine 0.84 (0.66-1.25) mg/dL Glucose 96 (74-99) mg/dL Calcium 9.2 (8.4-10.2) mg/dL AST 48 (17-59) U/L ALT 51 H (4-49) U/L Alkaline Phosphatase 98 (38-126) U/L Total Protein 7.5 (6.3-8.2) g/dL Albumin 4.6 (3.5-5.0) g/dL Calcium panel 09/15/22 Range/Units 22:03 Calcium 9.2 (8.4-10.2) mg/dL Albumin 4.6 (3.5-5.0) g/dL Pituitary panel 09/15/22 Range/Units 22:03 Sodium 144 (137-145) mmol/L Potassium 3.9 (3.5-5.1) mmol/L Chloride 109 H (98-107) mmol/L Carbon Dioxide 25 (22-30) mmol/L BUN 12 (9-20) mg/dL Creatinine 0.84 (0.66-1.25) mg/dL Glucose 96 (74-99) mg/dL Calcium 9.2 (8.4-10.2) mg/dL Adrenal panel 09/15/22 Range/Units 22:03 Sodium 144 (137-145) mmol/L Potassium 3.9 (3.5-5.1) mmol/L Chloride 109 H (98-107) mmol/L Carbon Dioxide 25 (22-30) mmol/L BUN 12 (9-20) mg/dL Creatinine 0.84 (0.66-1.25) mg/dL Glucose 96 (74-99) mg/dL Calcium 9.2 (8.4-10.2) mg/dL Total Bilirubin 0.6 (0.2-1.3) mg/dL AST 48 (17-59) U/L ALT 51 H (4-49) U/L Alkaline Phosphatase 98 (38-126) U/L Total Protein 7.5 (6.3-8.2) g/dL Albumin 4.6 (3.5-5.0) g/dL
--- NOTE | 2022-09-16 16:12 | P.HPIM ---
History of Present Illness H&P Date: 09/16/22 Chief Complaint: Abdominal pain This is a 47-year-old male with past medical history of coronary artery disease, myocardial infarction, hypertension, hyperlipidemia, and acid reflux who presents to [facility] with progressive intractable abdominal pain. Pain is located in the right upper quadrant. Pain is worse with eating. Patient has had abdominal issues for a few years now. Pain is described as an ache and at times sharp radiating to the back. Over the past few days pain has gotten worse. Pain was initially an 8 out of 10 pain. Pain is currently 5 out of 10. Patient recently had a HIDA scan that was inconclusive. Patient is having flatus. Patient denies diarrhea or constipation. Patient further denies nausea or vomiting. Patient denies chest pain or shortness of breath. Patient denies fevers or chills Review of Systems A 14 point review systems was assessed patient was only positive for those discussed in HPI Past Medical History Past Medical History: Coronary Artery Disease (CAD), GERD/Reflux, Myocardial Infarction ([place]) Additional Past Medical History / Comment(s): gall bladder issue, hernia, and cyst on kidney Last Myocardial Infarction Date:: march 2022 History of Any Multi-Drug Resistant Organisms: None Reported Past Surgical History: Ear Surgery, Heart Catheterization With Stent, Tonsillectomy Date of Last Stent Placement:: march 2022 Past Psychological History: No Psychological Hx Reported Smoking Status: Former smoker Past Alcohol Use History: None Reported Past Drug Use History: None Reported - Past Family History Brother(s) Family Medical History: Sleep Apnea/CPAP/BIPAP Sister(s) Family Medical History: Musculoskeletal Disorder Father Family Medical History: Cancer Mother Family Medical History: Hyperlipidemia Daughter(s) Family Medical History: No Reported History Son(s) Family Medical History: No Reported History Medications and Allergies Home Medications Medication Instructions Recorded Confirmed Type Omeprazole [PriLOSEC] 20 mg PO AC-BRKFST #14 cap 05/13/21 09/16/22 Rx Famotidine 40 mg PO HS 03/16/22 09/16/22 History Aspirin 81 mg PO DAILY #90 tab 03/18/22 09/16/22 Rx Atorvastatin [Lipitor] 80 mg PO HS #90 tab 03/18/22 09/16/22 Rx Metoprolol Tartrate [Lopressor] 12.5 mg PO BID #60 tab 03/18/22 09/16/22 Rx Nitroglycerin Sl Tabs [Nitrostat] 0.4 mg SUBLINGUAL Q5M PRN #25 tab 03/18/22 09/16/22 Rx Prasugrel [Effient] 10 mg PO DAILY #90 tab 03/18/22 09/16/22 Rx Sucralfate [Carafate] 1 gm PO BID PRN 08/08/22 09/16/22 History Cephalexin [Keflex] 500 mg PO Q6HR 09/16/22 09/16/22 History Allergies Allergy/AdvReac Type Severity Reaction Status Date / Time No Known Allergies Allergy Verified 09/16/22 06:41 Physical Exam Osteopathic Statement: *. No significant issues noted on an osteopathic structural exam other than those noted in the History and Physical/Consult. Vitals: Vital Signs Temp Pulse Pulse Resp BP BP Pulse Ox 09/16/22 14:02 98.0 F 62 16 132/83 98 09/16/22 06:11 98.2 F 53 L 18 118/75 96 09/15/22 21:12 98 F 69 16 146/92 99 Intake and Output 09/16/22 09/16/22 09/16/22 06:59 14:59 22:59 Other: Weight 95.254 kg General: [non toxic], [no distress], [appears at stated age] Derm: [warm], [dry] Head: [atraumatic], [normocephalic], [symmetric] Eyes: [EOMI], [no lid lag], [anicteric sclera] Mouth: [no lip lesion], [mucus membranes moist] Cardiovascular: [S1S2 reg], [no murmur], [positive posterior tibial pulse bilateral], Lungs: [CTA bilateral], [no rhonchi, no rales] , [no accessory muscle use] Abdominal: [soft], [ right upper quadrant tender to palpation], [no guarding], [no appreciable organomegaly] Ext: [no gross muscle atrophy], [no edema], [no contractures] Neuro: [ CN II-XI grossly intact], [no focal neuro deficits] Psych: [Alert], [oriented], [appropriate affect] Results CBC & Chem 7: 09/15/22 22:03 09/15/22 22:03 Labs: Abnormal Lab Results - Last 24 Hours (Table) 09/15/22 09/16/22 Range/Units 22:03 00:41 Chloride 109 H (98-107) mmol/L ALT 51 H (4-49) U/L Urine Protein Trace H (Negative) Urine Ketones 1+ H (Negative) Thrombosis Risk Factor Assmnt - DVT/VTE Prophylaxis DVT/VTE Prophylaxis: Mechanical Prophylaxis ordered - Choose All That Apply Any of the Below Risk Factors Present?: Yes Each Factor Represents 1 point: Age 41-60 years Other Risk Factors: No Other congenital or acquired thrombophilia - If yes, enter type in comment: No Thrombosis Risk Factor Assessment Total Risk Factor Score: 1 Thrombosis Risk Factor Assessment Level: Low Risk Assessment and Plan Assessment: 1. Intractable abdominal pain likely due to cholelithiasis vs cholecystitis CT of the abdomen and pelvis negative Ultrasound of the abdomen concern for cholelithiasis versus cholecystitis exam was limited due to bowel gas Surgery recommendations appreciated IV fluids Pain control Vitals every 4 2. CAD with PTCA times 03/11/2022 Continue home medications 3. Hypertension Resume metoprolol 4. GERD Resume Ppi 5. GI DVT prophylaxis 6. A.m. labs Anticipated length of stay greater than 2 midnight Patient is a full code Greater than 40 minutes spent coordinating care, documenting, and counseling patient. Time with Patient: Greater than 30
[2022-09-16] MEDS: SODIUM CHLORIDE 0.9% 1,000 ML IV SCH (17:36)
[2022-09-16] MEDS ORDERED: ATORVASTATIN 80 MG TAB PO SCH (21:00)
[2022-09-16] MEDS ORDERED: FAMOTIDINE 20 MG TAB PO SCH (21:00)
[2022-09-17 00:03] VITALS: RESP 16
[2022-09-17] MEDS: SODIUM CHLORIDE 0.9% 1,000 ML IV SCH ×2 (04:59→13:32)
--- NOTE | 2022-09-17 09:14 | P.PN ---
Subjective Progress Note Date: 09/17/22 Principal diagnosis: Abdominal pain Patient doing better today. He tolerated his low-fat diet. Ultrasound shows possible cholecystitis. Mendiola sign is negative. He is afebrile. He would like to go home today. Objective - Vital Signs Vital signs: Vital Signs Temp 97.7 F 09/17/22 07:40 Pulse 64 09/17/22 07:40 Resp 16 09/17/22 07:40 BP 110/69 09/17/22 07:40 Pulse Ox 97 09/17/22 07:40 FiO2 Intake & Output 09/16/22 09/17/22 09/17/22 18:59 06:59 18:59 Weight 95.254 kg - Labs CBC & Chem 7: 09/15/22 22:03 09/15/22 22:03 Assessment and Plan (1) Abdominal pain Narrative/Plan: 47-year-old male with possible chronic cholecystitis. Continue low-fat diet. January discharge. Follow-up with Dr. Feuntes as outpatient. Current Visit: No Status: Acute Code(s): R10.9 - UNSPECIFIED ABDOMINAL PAIN SNOMED Code(s): 60781520
[2022-09-17] MEDS: METOPROLOL TARTRATE 12.5 MG TAB PO SCH (09:21)
[2022-09-17] MEDS: PRASUGREL 10 MG TAB PO SCH (09:21)
[2022-09-17] MEDS: ASPIRIN 81 MG PO SCH (09:22)
[2022-09-17] MEDS: PANTOPRAZOLE 40 MG TABLET PO SCH (09:22)
--- NOTE | 2022-09-17 12:29 | P.DS ---
Providers Date of admission: 09/16/22 05:50 Expected date of discharge: 09/17/22 Attending physician: Nik Van MD Consults: 09/16/22 08:02 Consult Physician Routine Consulting Provider: Paula Nathan Consult Reason/Comments: abdominal pain Do you want consulting provider notified?: Yes 09/16/22 09:53 Consult Physician Routine Consulting Provider: Severiano Quinonez Consult Reason/Comments: Cardiac risk assessment Do you want consulting provider notified?: Yes Primary care physician: Norman Deshpande [facility] Course: Admitting diagnoses: Abdominal pain Discharge diagnoses: Abdominal pain improved Cholelithiasis Hypertension CAD with PTCA 1 on 03/11/22 [facility] Hospital course: This is a 47-year-old male with past medical history of coronary artery disease, myocardial infarction, hypertension, hyperlipidemia, and acid reflux who presents to [facility] with progressive intractable abdominal pain. Pain is located in the right upper quadrant. Pain is worse with eating. Patient has had abdominal issues for a few years now. Pain is described as an ache and at times sharp radiating to the back. Over the past few days pain has gotten worse. Pain was initially an 8 out of 10 pain. Pain is currently 5 out of 10. Patient recently had a HIDA scan that was inconclusive. Patient is having flatus. Patient denies diarrhea or constipation. Patient further denies nausea or vomiting. Patient denies chest pain or shortness of breath. Patient denies fevers or chills. Patient was seen and followed by general surgery. CT of the abdomen and pelvis was negative. Ultrasound abdomen showed possible gallstone versus cholecystitis. General surgery oriented outpatient follow-up. No surgical intervention at this time General:, [no distress], [appears at stated age] Derm: [warm], [dry] Head: [atraumatic], [normocephalic], [symmetric] Eyes: [EOMI], [no lid lag], [anicteric sclera] Mouth: [no lip lesion], [mucus membranes moist] Cardiovascular: [S1S2 reg], [no murmur], [positive posterior tibial pulse bilateral], Lungs: [CTA bilateral], [no rhonchi, no rales] , [no accessory muscle use] Abdominal: [soft], [ nontender to palpation], [no guarding], [no appreciable organomegaly] Ext: [no gross muscle atrophy], [no edema], [no contractures] Neuro: [ CN II-XI grossly intact], [no focal neuro deficits] Psych: [Alert], [oriented], [appropriate affect] 1. Intractable abdominal pain likely due to cholelithiasis vs cholecystitis CT of the abdomen and pelvis negative Ultrasound of the abdomen concern for cholelithiasis versus cholecystitis exam was limited due to bowel gas Surgery outpatient follow-up IV fluid provided 2. CAD with PTCA times 03/11/2022 Continue home medications 3. Hypertension Resume metoprolol 4. GERD Resume Ppi Follow-up with general surgery Dr. Chavarria in 1-2 weeks Follow-up with PCP in 2-7 days Disposition: Home Activity: As tolerated Diet: Cardiac Condition: Stable Patient Condition at Discharge: Stable Plan - Discharge Summary Discharge Rx Participant: No New Discharge Prescriptions: No Action Omeprazole [PriLOSEC] 20 mg PO AC-BRKFST #14 cap Aspirin 81 mg PO DAILY #90 tab Atorvastatin [Lipitor] 80 mg PO HS #90 tab Nitroglycerin Sl Tabs [Nitrostat] 0.4 mg SUBLINGUAL Q5M PRN #25 tab PRN Reason: Chest Pain Sucralfate [Carafate] 1 gm PO BID PRN PRN Reason: Heartburn Cephalexin [Keflex] 500 mg PO Q6HR Famotidine 40 mg PO HS Prasugrel [Effient] 10 mg PO DAILY #90 tab Metoprolol Tartrate [Lopressor] 12.5 mg PO BID #60 tab Discharge Medication List Omeprazole [PriLOSEC] 20 mg PO AC-BRKFST #14 cap 05/13/21 [Rx] Famotidine 40 mg PO HS 03/16/22 [History] Aspirin 81 mg PO DAILY #90 tab 03/18/22 [Rx] Atorvastatin [Lipitor] 80 mg PO HS #90 tab 03/18/22 [Rx] Metoprolol Tartrate [Lopressor] 12.5 mg PO BID #60 tab 03/18/22 [Rx] Nitroglycerin Sl Tabs [Nitrostat] 0.4 mg SUBLINGUAL Q5M PRN #25 tab 03/18/22 [Rx] Prasugrel [Effient] 10 mg PO DAILY #90 tab 03/18/22 [Rx] Sucralfate [Carafate] 1 gm PO BID PRN 08/08/22 [History] Cephalexin [Keflex] 500 mg PO Q6HR 09/16/22 [History] Follow up Appointment(s)/Referral(s): Norman Kyle MD [Primary Care Provider] - 1-2 days Paula Nathan MD [STAFF PHYSICIAN] - 10/04/22 Patient Instructions/Handouts: Gallstones (DC), Low Fat Diet (DC) Activity/Diet/Wound Care/Special Instructions: Continue low-fat diet at discharge until seen by surgeon Discharge Disposition: HOME SELF-CARE
[2022-09-17 13:28] VITALS: BP 120/80; PULSE 75; TEMP 98.1
--- NOTE | 2022-09-17 15:15 | P.CRDCN ---
History of Present Illness Consult date: 09/17/22 Reason for Consult (text): preoperative clearance History of present illness: The patient is a 47-year-old male who is currently admitted to the hospital with intractable nausea and vomiting. He's been suffering from abdominal discomfort over the last several months. Abdominal ultrasound showed possible gallstone or cholecystitis and CT of abdomen showed no acute process. Surgery was consulted for possible cholecystectomy, however this will be likely scheduled outpatient. Cardiology was consulted for clearance. DIAGNOSTICS: EKG shows sinus rhythm without ST or T-wave abnormalities Stress testing in July 2022 shows no ischemia Lab data: W BC 9.1, hemoglobin 14.0, hematocrit 41.0, platelet 262, sodium 144, potassium 3.9, BUN 12, creatinine 0.84, AST 48, ALT 51, amylase 60, lipase 85 Vital signs: 100/62, pulse 71, respiratory rate 16, afebrile, SpO2 95% on room air PAST MEDICAL HISTORY: Coronary artery disease with stenting in March 2022 REVIEW OF SYSTEMS: No fever or chills. No cough or expectoration. No diaphoresis. Patient denies headache, dizziness, blurred vision, double vision. No hematochezia. No hematemesis. Denies any black stools or blood in his stools. Denies dysuria or hematuria. No muscle weakness or numbness. Denies chest pain or chest pressure. No dyspnea or orthopnea. PHYSICAL EXAMINATION: This is a 47-year-old male in no apparent distress at the time of my examination. HEENT: Head is atraumatic, normocephalic. Pupils are equal, round. Sclerae anicteric. Conjunctivae are clear. Mucous membranes of the mouth are moist. Neck is supple. There is no jugular venous distention. No carotid bruit is heard. CHEST EXAMINATION: Lungs are clear to auscultation. No chest wall tenderness is noted on palpation or with deep breathing. HEART EXAMINATION: Heart regular rate and rhythm. S1, S2 heard. No murmurs, gallops or rub. ABDOMEN: Soft, nontender. Bowel sounds are heard. No organomegaly noted. EXTREMITIES: 2+ peripheral pulses with no evidence of peripheral edema and no calf tenderness noted. NEUROLOGIC EXAMINATION: Patient is awake, alert and oriented x3. FINAL ASSESSMENT AND PLAN: Preoperative clearance Intractable abdominal pain, secondary to cholelithiasis versus cholecystitis History of coronary artery disease, stress testing in July 2022 shows no ischemia History of GERD PLAN: Patient may proceed with surgery as clinically indicated May hold clopidogrel up to 5 days prior to surgery Do not hold aspirin Follow-up with primary ekg manager I am dictating on behalf of Dr Александр Verdugo's history/physical and assessment/plan. Past Medical History Past Medical History: Coronary Artery Disease (CAD), GERD/Reflux, Myocardial Infarction ([place]) Additional Past Medical History / Comment(s): gall bladder issue, hernia, and cyst on kidney Last Myocardial Infarction Date:: march 2022 History of Any Multi-Drug Resistant Organisms: None Reported Past Surgical History: Ear Surgery, Heart Catheterization With Stent, Tonsillectomy Date of Last Stent Placement:: march 2022 Past Psychological History: No Psychological Hx Reported Smoking Status: Former smoker Past Alcohol Use History: None Reported Past Drug Use History: None Reported - Past Family History Brother(s) Family Medical History: Sleep Apnea/CPAP/BIPAP Sister(s) Family Medical History: Musculoskeletal Disorder Father Family Medical History: Cancer Mother Family Medical History: Hyperlipidemia Daughter(s) Family Medical History: No Reported History Son(s) Family Medical History: No Reported History Medications and Allergies Home Medications Medication Instructions Recorded Confirmed Type Omeprazole [PriLOSEC] 20 mg PO AC-BRKFST #14 cap 05/13/21 09/16/22 Rx Famotidine 40 mg PO HS 03/16/22 09/16/22 History Aspirin 81 mg PO DAILY #90 tab 03/18/22 09/16/22 Rx Atorvastatin [Lipitor] 80 mg PO HS #90 tab 03/18/22 09/16/22 Rx Metoprolol Tartrate [Lopressor] 12.5 mg PO BID #60 tab 03/18/22 09/16/22 Rx Nitroglycerin Sl Tabs [Nitrostat] 0.4 mg SUBLINGUAL Q5M PRN #25 tab 03/18/22 09/16/22 Rx Prasugrel [Effient] 10 mg PO DAILY #90 tab 03/18/22 09/16/22 Rx Sucralfate [Carafate] 1 gm PO BID PRN 08/08/22 09/16/22 History Cephalexin [Keflex] 500 mg PO Q6HR 09/16/22 09/16/22 History Allergies Allergy/AdvReac Type Severity Reaction Status Date / Time No Known Allergies Allergy Verified 09/16/22 06:41 Physical Exam Vitals: Vital Signs Temp Pulse Resp BP Pulse Ox 09/17/22 07:40 97.7 F 64 16 110/69 97 09/17/22 04:00 97.5 F L 64 16 115/71 95 09/17/22 00:00 98 F 62 16 85/46 95 09/16/22 20:13 98.0 F 81 18 104/65 97 09/16/22 20:00 18 09/16/22 14:02 98.0 F 62 16 132/83 98 Intake and Output 09/16/22 09/17/22 09/17/22 22:59 06:59 14:59 Intake Total 180 Balance 180 Intake: Oral 180 Results 09/15/22 22:03 09/15/22 22:03 Current Medications Generic Name Dose Route Start Last Admin Trade Name Freq PRN Reason Stop Dose Admin Aspirin 81 mg 09/16/22 09:00 09/16/22 08:03 Aspirin 81 Mg PO 81 mg DAILY AMY Administration Atorvastatin Calcium 80 mg 09/16/22 21:00 09/16/22 21:05 Atorvastatin 80 Mg Tab PO 80 mg HS AMY Administration Famotidine 40 mg 09/16/22 21:00 09/16/22 21:04 Famotidine 20 Mg Tab PO 40 mg HS AMY Administration Sodium Chloride 1,000 mls @ 100 mls/hr 09/16/22 16:15 09/17/22 04:59 Saline 0.9% IV 100 mls/hr .Q10H AMY Administration Metoprolol Tartrate 12.5 mg 09/16/22 09:00 09/16/22 21:04 Metoprolol Tartrate 12.5 Mg Tab PO Not Given BID AMY Morphine Sulfate 4 mg 09/16/22 05:48 09/16/22 06:25 Morphine Sulfate 4 Mg/Ml Syringe IV 4 mg Q4HR PRN Administration Severe Pain (Scale 7 to 10) Naloxone HCl 0.2 mg 09/16/22 05:48 Naloxone 0.4 Mg/Ml 1 Ml Vial IV Q2M PRN Opioid Reversal Nitroglycerin 0.4 mg 09/16/22 06:30 Nitroglycerin Sl Tabs 0.4 Mg Tab SUBLINGUAL Q5M PRN Chest Pain Pantoprazole Sodium 40 mg 09/16/22 07:30 09/16/22 08:03 Pantoprazole 40 Mg Tablet PO 40 mg AC-BRKFST AMY Administration Prasugrel 10 mg 09/16/22 09:00 09/16/22 12:25 Prasugrel 10 Mg Tab PO 10 mg DAILY AMY Administration Sucralfate 1 gm 09/16/22 06:30 Sucralfate 1 Gm Tab PO BID PRN Heartburn Intake and Output 09/16/22 09/17/22 09/17/22 22:59 06:59 14:59 Intake Total 180 Balance 180 Intake: Oral 180 09/15/22 22:03 09/15/22 22:03
== END 2022-09-17 14:46 | disposition home or self-care (01) ==
LOC: EC 20:28 → 6NMEDSUR 09-16 05:50 → 5NMEDONC 09-16 06:50
PROVIDERS: ADMIT Internal Medicine; ATTEND Internal Medicine
DX: K80.20 Calculus of gallbladder without cholecystitis without obstruction (principal); I10 Essential (primary) hypertension; I25.10 Atherosclerotic heart disease of native coronary artery without angina pectoris; K21.9 Gastro-esophageal reflux disease without esophagitis; E78.5 Hyperlipidemia, unspecified; I25.2 Old myocardial infarction; Z87.891 Personal history of nicotine dependence; Z95.5 Presence of coronary angioplasty implant and graft; Z79.02 Long term (current) use of antithrombotics/antiplatelets; Z79.82 Long term (current) use of aspirin; Z79.899 Other long term (current) drug therapy
CPT/HCPCS: 96376; 96361; 96374; 96375; 99285; 36415; 93005; 80053; 82150; 83690; 85025; 81003; 74018; 76705; 74177; G0378 ×2; J2270; J2405; Q9967

== ENCOUNTER 2022-09-22 14:16 | Emergency (ER) | payer BC ==
[2022-09-22 14:37] VITALS: RESP 18
[2022-09-22] MEDS ORDERED: ONDANSETRON 4 MG/2 ML VIAL IVP STA (15:16)
[2022-09-22] MEDS ORDERED: SODIUM CHLORIDE 0.9% 1,000 ML IV STA (15:16)
[2022-09-22] MEDS ORDERED: HYDROmorphone 0.5 MG/0.5 ML SYRINGE IVP STA (15:16)
[2022-09-22] MEDS ORDERED: SODIUM CHLORIDE 0.9% 500 ML 500 ML IV STA (15:16)
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
[2022-09-22 15:31] LABS: Appearance,Urine Clear (Clear); Bilirubin,Urine Negative (Negative); Blood,Urine Negative (Negative); Color,Urine Yellow; Glucose,Urine (UA) Negative (Negative); Ketones,Urine Negative (Negative); Leukocyte Esterase,Urine Negative (Negative); Nitrite,Urine Negative (Negative); PH, Urine 6.5 (5.0-8.0); Protein,Urine Negative (Negative); Specific Gravity,Urine 1.021 (1.001-1.035); Urobilinogen,Urine <2.0 mg/dL (<2.0)
[2022-09-22 15:32] LABS: Basophils # (A) 0.1 k/uL (0-0.2); Basophils % (A) 1 %; Eosinophils # (A) 0.3 k/uL (0-0.7); Eosinophils % (A) 4 %; HCT 39.8 % (39.0-53.0); HGB 13.6 gm/dL (13.0-17.5); Lymphocytes # (A) 1.9 k/uL (1.0-4.8); Lymphocytes % (A) 24 %; MCH 30.4 pg (25.0-35.0); MCHC 34.1 g/dL (31.0-37.0); MCV 89.1 fL (80.0-100.0); Mean Platelet Volume 8.4; Monocytes # (A) 0.5 k/uL (0-1.0); Monocytes % (A) 6 %; Neutrophils # (A) 5.1 k/uL (1.3-7.7); Neutrophils % (A) 64 %; Platelet Count 225 k/uL (150-450); RBC 4.47 m/uL (4.30-5.90); RDW 12.5 % (11.5-15.5); WBC 7.9 k/uL (3.8-10.6)
[2022-09-22 15:54] LABS: ALT 36 U/L (4-49); AST 38 U/L (17-59); African American GFR (CKD) >90 (>60 ml/min/1.73 sqM); Albumin 4.5 g/dL (3.5-5.0); Alkaline Phosphatase 85 U/L (38-126); Amylase 64 U/L (30-110); Anion Gap 7 mmol/L; Blood Urea Nitrogen 12 mg/dL (9-20); C Reactive Protein <0.5 mg/dL (<1.0); Calcium 9.1 mg/dL (8.4-10.2); Carbon Dioxide 26 mmol/L (22-30); Chloride 107 mmol/L (98-107); Glucose 93 mg/dL (74-99); Lipase 178 U/L (23-300); Non-African American GFR(CKD) >90 (>60 ml/min/1.73 sqM); Sodium 140 mmol/L (137-145); Total Bilirubin 0.8 mg/dL (0.2-1.3); Total Protein 7.6 g/dL (6.3-8.2)
[2022-09-22 16:05] LABS: Potassium 4.6 mmol/L (3.5-5.1)
[2022-09-22] MEDS ORDERED: MORPHINE SULFATE 4 MG/ML SYRINGE IV STA (17:20)
[2022-09-22 17:38] VITALS: BP 140/88; PULSE 88; TEMP 98.4
== END 2022-09-22 18:05 | disposition home or self-care (01) ==
LOC: EC 14:16
DX: K57.90 Diverticulosis of intestine, part unspecified, without perforation or abscess without bleeding (principal); I25.10 Atherosclerotic heart disease of native coronary artery without angina pectoris; I10 Essential (primary) hypertension; I25.2 Old myocardial infarction; Z87.891 Personal history of nicotine dependence; Z88.1 Allergy status to other antibiotic agents
CPT/HCPCS: 36415; 80053; 82150; 83605; 83690; 84484; 85025; 86140; 81003; 99284; 96374; 96375 ×2; 96361 ×2; J2270; J2405; J1170

== ENCOUNTER 2022-09-26 11:21 | Inpatient (IN) | payer BC ==
[~2022-09-26 11:21] MED LIST: DEXAMETHASONE SOD PHOSPHATE 4 MG/ML 1 ML VIAL IV ONE; HYDROmorphone 0.5 MG/0.5 ML SYRINGE IVP PRN; LIDOCAINE 1% (10MG/ML) FOR IV START INTRADERMA PRN; ONDANSETRON 4 MG/2 ML VIAL IVP ONE
[2022-09-26] MEDS: LACTATED RINGERS 1,000 ML IV SCH (12:00)
[2022-09-26] MEDS ORDERED: LEVOFLOXACIN 500MG-D5W PMX 500 MG in DEXTROSE/WATER 1 100ML.BAG IVPB STA (12:04)
[2022-09-26 12:05] LABS: Glucose,Whole Blood 83 mg/dL (70-110)
[2022-09-26] MEDS ORDERED: LIDOCAINE 2% INJ 20 MG/ML (2 ML VIAL) ONE (12:22)
[2022-09-26] MEDS ORDERED: SUCCINYLCHOLINE CHLORIDE 200 MG/10 ML VIAL IV ONE (12:22)
[2022-09-26] MEDS ORDERED: PROPOFOL 10 MG/ML 20 ML VIAL IV ONE (12:22)
[2022-09-26] MEDS ORDERED: fentaNYL (PF) 50 MCG/ML 2 ML AMP ONE (12:22)
[2022-09-26] MEDS ORDERED: GLYCOPYRROLATE 0.2 MG/ML 2 ML VIAL ONE (12:22)
[2022-09-26] MEDS ORDERED: MIDAZOLAM 2 MG/2 ML VIAL ONE (12:22)
[2022-09-26] MEDS ORDERED: ROCURONIUM 10 MG/ML (5 ML VIAL) IV ONE (12:22)
[2022-09-26] MEDS ORDERED: NEOSTIGMINE 1 MG/ML 10 ML VIAL ONE (12:22)
[2022-09-26] MEDS ORDERED: HYDROmorphone (PF) 1 MG/ML ONE (12:22)
[2022-09-26] MEDS ORDERED: INDOCYANINE GREEN 25 MG VIAL IV ONE (12:22)
[2022-09-26] MEDS ORDERED: PHENYLEPHRINE-0.9% NACL SYG 1,000 MCG/10 ML SYRINGE ONE (12:22)
[2022-09-26] MEDS ORDERED: LIDOCAINE 1%-EPI 1:100,000 20 ML VIAL SQ ONE ×2 (12:48)
[2022-09-26] MEDS ORDERED: BUPIVACAINE (PF) 0.25% 30 ML VIAL SQ ONE ×2 (12:48)
[2022-09-26] MEDS ORDERED: LACTATED RINGERS 1,000 ML IV ONE (13:02)
[2022-09-26] MEDS ORDERED: IOPAMIDOL-370 50ML BTL IRRIGATION ONE (14:25)
[2022-09-26] MEDS ORDERED: NALOXONE 0.4 MG/ML 1 ML VIAL IV PRN (15:34)
--- NOTE | 2022-09-26 15:34 | P.OP ---
Date of Procedure: 09/26/22 Preoperative Diagnosis: Cholelithiasis, choleystitis Postoperative Diagnosis: Cholelithiasis, cholecystitis, common bile duct injury Procedure(s) Performed: laparoscopy, laparotomy, attempted cholecystectomy, cholangiogram, placement of drain Anesthesia: LISA Surgeon: Alesha Alamo Estimated Blood Loss (ml): 150 Pathology: none sent Condition: stable Disposition: PACU Indications for Procedure: Patient presented with recurrent episodes of abdominal pain. Description of Procedure: Patient is taken to the OR where he is prepped and draped in the usual sterile manner under general endotracheal anesthetic. A supraumbilical incision was made due to the length of the torso. A Veress needle was placed into the abdominal cavity. Pneumoperitoneum was established with CO2 gas. Sites are chosen for trochars needs are placed through small skin incisions. The liver had a very large left lobe. He was placed in reverse Trendelenburg in left lateral position. The omentum was densely adherent to the gallbladder and the gallbladder was small and fibrotic. The omentum was tediously dissected free. He was noted to have some of the anterior surface of the duodenum adherent and was swept inferiorly. Really couldn't visualize the structures well. Attempt was made to start doing a domed down resection but visualization wasn't optimal due to the redundant liver lobe and fibrotic nature of the gallbladder. Therefore decision was made to convert to open. The laparoscopic trochars and instruments were removed. A right subcostal incision was made. A Bookwalter retractor was placed. The gallbladder was very small and fibrotic. This tediously dissected free. What was thought to be the cystic duct with a stone in it was dissected free. A stone was milked back into the gallbladder. The cystic duct was then suture ligated with 0 Vicryl and transected. Then the gallbladder was tediously dissected free. A large ductal structure was then noted to be posterior to the gallbladder. It appeared to be going directly into the gallbladder itself. A small bile leak was noted. A cholangiogram catheter was then performed and it showed flow into the liver but no flow distally. The suture was then removed from what had been presumed to be the cystic duct. A cholangiogram was performed. Initial flow into the duodenum but none into the liver itself. The gallbladder structure was reexamined. It appeared due to all the chronic fibrosis that the cystic duct was probably very very short and that there was a transection of the cystic duct. The gallbladder and the rest the ductal structures were left in situ. No drain was placed into the right or left hepatic ducts proximally to decrease the chance of further injury. A drain was placed. The common bile duct stump was tagged with Prolene suture. The Bookwalter retractor was placed. The abdominal wall was closed with 1 PDS and colin. The drain was sutured in place. Dressings were applied. He tolerated the procedure without difficulty and is taken to recovery room. I'll contact hepatobiliary surgery to see about transfer for treatment of bile duct injury.
[2022-09-26] MEDS ORDERED: HYDROmorphone 0.5 MG/0.5 ML SYRINGE IVP ONE ×3 (15:42→16:40)
--- NOTE | 2022-09-26 15:43 | FL ---
Fluoroscopy INDICATION: Pain FINDINGS: Fluoroscopy time: 5 seconds. Images obtained: 3. IMPRESSIONS: 1. Documentation of fluoroscopy.
[2022-09-26] MEDS: HYDROmorphone 1 MG/ML 1 ML SYRINGE IVP PRN (18:15)
[2022-09-26] MEDS: KETOROLAC 15 MG/ML 1 ML VIAL IVP SCH ×2 (18:16→23:58)
--- NOTE | 2022-09-26 19:44 | P.DS ---
Providers Date of admission: 09/26/2022 Expected date of discharge: 09/26/22 Attending physician: Alesha Alamo Primary care physician: [facility] Course: The patient presented for cholecystectomy due to months of abdominal and chest pain. March 16, 2022 he underwent a STEMI treated with angioplasty and stenting. He had been treated for GERD since last summer and had multiple ED visits for the same. US was done showing gallstones in a contracted gallbladder. July he was admitted for similar complaints and had cardiac workup performed with a normal stress test. On 09-07-22 a HIDA showed nonvisualization of the gallb ladder. He was taken to the OR when a laparoscopy was done. The gallbladder was Firm and contracted. Difficult to grasp with laparoscopic instruments. Decision was made to convert to an open procedure. Dissection was tedious. What was felt to be the cystic duct was dissected free and a small stone was encountered. The duct was cut and ligated. Dissection was continued, when trying to dissect off the presumed gallbladder bed, there was noted to be a ductal structure with bile leaking. Cholangiogram was done to the ductal opening with findings that this was the right hepatic duct. A cholangiogram was also done distally showing that duct Which had been transected was indeed the common bile duct. The duct was very small so a t-tube was not able to be passed into the proximal or distal common duct segments. Decision was made to place a drain in the gallbladder fossa to drain the right hepatic duct injury, leave the fibrotic gallbladder in situ and transfer the patient when they could be treated by hepatobiliary surgery. The case was discussed with Dr Baires, Hep[facility]obiliary surgery at [facility] who [facility] the patient in transfer. This will occur as soon as a bed is available. Assessment: Cholelithiasis, common bile duct transsection, right hepatic duct injury Procedures: laparoscopy, laparotomy with attempted cholecystectomy, intraoperative cholangiogram Patient Condition at Discharge: Fair Plan - Discharge Summary Discharge Rx Participant: No New Discharge Prescriptions: No Action Omeprazole [PriLOSEC] 20 mg PO AC-BRKFST #14 cap Aspirin 81 mg PO DAILY #90 tab Atorvastatin [Lipitor] 80 mg PO HS #90 tab Nitroglycerin Sl Tabs [Nitrostat] 0.4 mg SUBLINGUAL Q5M PRN #25 tab PRN Reason: Chest Pain Sucralfate [Carafate] 1 gm PO BID PRN PRN Reason: Heartburn Famotidine 40 mg PO HS Prasugrel [Effient] 10 mg PO DAILY #90 tab Metoprolol Tartrate [Lopressor] 12.5 mg PO BID #60 tab Discharge Medication List Omeprazole [PriLOSEC] 20 mg PO AC-BRKFST #14 cap 05/13/21 [Rx] Famotidine 40 mg PO HS 03/16/22 [History] Aspirin 81 mg PO DAILY #90 tab 03/18/22 [Rx] Atorvastatin [Lipitor] 80 mg PO HS #90 tab 03/18/22 [Rx] Metoprolol Tartrate [Lopressor] 12.5 mg PO BID #60 tab 03/18/22 [Rx] Nitroglycerin Sl Tabs [Nitrostat] 0.4 mg SUBLINGUAL Q5M PRN #25 tab 03/18/22 [Rx] Prasugrel [Effient] 10 mg PO DAILY #90 tab 03/18/22 [Rx] Sucralfate [Carafate] 1 gm PO BID PRN 08/08/22 [History] Discharge Disposition: OTHER INSTITUTION NOT DEFINED
[2022-09-26] MEDS: METOPROLOL TARTRATE 12.5 MG TAB PO SCH (21:00)
[2022-09-26] MEDS: ATORVASTATIN 80 MG TAB PO SCH (21:00)
[2022-09-26] MEDS: HYDROmorphone 0.5 MG/0.5 ML SYRINGE IVP PRN (23:58)
[2022-09-27] MEDS: SODIUM CHLORIDE 0.9% 1,000 ML IV SCH ×3 (00:01→17:04)
[2022-09-27] MEDS: HYDROmorphone 0.5 MG/0.5 ML SYRINGE IVP PRN ×4 (04:55→20:37)
[2022-09-27] MEDS: KETOROLAC 15 MG/ML 1 ML VIAL IVP SCH ×3 (06:29→17:05)
[2022-09-27] MEDS: LACTATED RINGERS 1,000 ML IV SCH (06:32)
[2022-09-27] MEDS: PANTOPRAZOLE 40 MG/10 ML VIAL IVP SCH (09:48)
[2022-09-27] MEDS: METOPROLOL TARTRATE 12.5 MG TAB PO SCH ×2 (09:48→20:37)
[2022-09-27] MEDS ORDERED: LEVOFLOXACIN 500MG-D5W PMX 500 MG in DEXTROSE/WATER 1 100ML.BAG IVPB SCH (12:00)
--- NOTE | 2022-09-27 15:58 | P.PN ---
Subjective Progress Note Date: 09/27/22 Patient is seen on rounds. Having expected incisional pain. No nausea or vomiting. He would like to eat. Objective - Vital Signs Vital signs: Vital Signs Temp 97.9 F 09/27/22 13:21 Pulse 82 09/27/22 13:21 Resp 14 09/27/22 13:21 BP 123/71 09/27/22 13:21 Pulse Ox 93 L 09/27/22 13:21 FiO2 Intake & Output 09/26/22 09/27/22 09/27/22 18:59 06:59 18:59 Intake Total 2100 Output Total 150 1140 50 Balance 1950 -1140 -50 Weight 91 kg Intake: IV 2100 Oral 0 Output: Drainage 340 50 Abdomen 340 50 Urine 800 Uretheral (Garcia) 700 Estimated Blood Loss 150 Other: Voiding Method Urinal - Constitutional General appearance: Present: cooperative, no acute distress - Gastrointestinal Gastrointestinal Comment(s): The dressing is intact, clean and dry. The NIKO drain is bilious General gastrointestinal: Present: soft Assessment and Plan (1) Common bile duct transection Current Visit: Yes Status: Acute Code(s): S36.13XA - INJURY OF BILE DUCT, INITIAL ENCOUNTER SNOMED Code(s): 702822005 Plan: Patient and 's questions were encouraged and answered. Currently he has been accepted in transfer to [facility] to be treated by the hepatobiliary surgeon there. Fortunately there are no beds available at this time. [facility] was also contacted yesterday. I did not hear anything back from them. The environmental emergencies planner talk to them today and they said there were no beds available at this time. As soon as a bed is available we will transfer him to be evaluated by hepatobiliary surgeon. At the present time he is receiving IV fluids, has pain medication ordered. The bile leak is also contained and controlled with the drain. Await transfer to tertiary center.
[2022-09-27] MEDS: ATORVASTATIN 80 MG TAB PO SCH (20:37)
[2022-09-28] MEDS: KETOROLAC 15 MG/ML 1 ML VIAL IVP SCH ×2 (00:10→05:54)
[2022-09-28] MEDS: HYDROmorphone 1 MG/ML 1 ML SYRINGE IVP PRN (03:34)
[2022-09-28] MEDS: LACTATED RINGERS 1,000 ML IV SCH (05:52)
[2022-09-28] MEDS: SODIUM CHLORIDE 0.9% 1,000 ML IV SCH (05:55)
[2022-09-28 07:47] VITALS: BP 125/80; PULSE 88; RESP 17; TEMP 98.5
[2022-09-28] MEDS: PANTOPRAZOLE 40 MG/10 ML VIAL IVP SCH (09:01)
[2022-09-28] MEDS: METOPROLOL TARTRATE 12.5 MG TAB PO SCH (09:01)
[2022-09-28] MEDS: HYDROmorphone 0.5 MG/0.5 ML SYRINGE IVP PRN (09:01)
--- NOTE | 2022-09-28 09:58 | P.PN ---
Subjective Progress Note Date: 09/28/22 The patient is seen on rounds. He is having some expected incisional pain. No nausea or vomiting. Tolerating clear liquids. No chest pain or shortness of breath. Objective - Vital Signs Vital signs: Vital Signs Temp 98.5 F 09/28/22 07:14 Pulse 88 09/28/22 07:14 Resp 17 09/28/22 07:14 BP 125/80 09/28/22 07:14 Pulse Ox 91 L 09/28/22 09:18 FiO2 Intake & Output 09/27/22 09/28/22 09/28/22 18:59 06:59 18:59 Output Total 770 800 Balance -770 -800 Output: Drainage 170 200 Abdomen 170 200 Urine 600 600 Other: Voiding Method Indwelling Catheter - Constitutional General appearance: Present: cooperative, no acute distress - Gastrointestinal General gastrointestinal: Present: decreased bowel sounds, soft Localized gastrointestinal: surgical scar: diffuse (Dressings are intact, clean and dry. The NIKO is bilious.) Assessment and Plan (1) Common bile duct transection Current Visit: Yes Status: Acute Code(s): S36.13XA - INJURY OF BILE DUCT, INITIAL ENCOUNTER SNOMED Code(s): 136022318 Plan: Patient is hemodynamically stable. Receiving pain medication and IV antibi otics. The drain is adequately draining the bile leak. We are awaiting word from a tertiary center regarding possible transfer. He has been accepted at [facility] but as of last night they had no bed. Awaiting contact with [facility]. The other hospital in [facility] is not excepting any transfers. Questions were encouraged and answered. is at bedside.
== END 2022-09-28 11:23 | disposition short-term general hospital (02) | DRG 409 ==
LOC: OR 11:21 → 4SSUR 16:01 → OR 16:01 → 4SSUR 16:26
PROVIDERS: ADMIT Surgery; ATTEND Surgery
PROC: 0FJB4ZZ Inspection of Hepatobiliary Duct, Percutaneous Endoscopic Approach (ICD-10-PCS; principal; 2022-09-26 12:30)
PROC: 0F9400Z Drainage of Gallbladder with Drainage Device, Open Approach (ICD-10-PCS; principal; 2022-09-26 12:30)
PROC: 0FJ44ZZ Inspection of Gallbladder, Percutaneous Endoscopic Approach (ICD-10-PCS; principal; 2022-09-26 12:30)
PROC: 0FJ Hepatobiliary System and Pancreas, Inspection (ICD-10-PCS; principal; 2022-09-26 12:30)
PROC: BF502Z0 Other Imaging of Bile Ducts using Fluorescing Agent, Intraoperative (ICD-10-PCS; principal; 2022-09-26 12:30)
DX: K80.11 Calculus of gallbladder with chronic cholecystitis with obstruction (principal); K91.71 Accidental puncture and laceration of a digestive system organ or structure during a digestive system procedure; S36.13XA Injury of bile duct, initial encounter; K21.9 Gastro-esophageal reflux disease without esophagitis; Y81.3 Surgical instruments, materials and general- and plastic-surgery devices (including sutures) associated with adverse incidents; Y92.234 Operating room of hospital as the place of occurrence of the external cause; Z53.31 Laparoscopic surgical procedure converted to open procedure; Z95.5 Presence of coronary angioplasty implant and graft; I25.2 Old myocardial infarction
CPT/HCPCS: 74300; 87635; 94760

== ENCOUNTER → 2023-09-22 | Outpatient (CLI) | payer BC, OTHER ==
[2023-09-22 14:37] LABS: ALT 25 U/L (10-49); AST 24 U/L (14-35); LDL Cholesterol,Calculated 99.1 mg/dL (0.0-131.0); VLDL Calculation 10.78 mg/dL (5.00-40.00)
== END | disposition home or self-care (01) ==
LOC: LABWHC1 10:49
PROVIDERS: ATTEND Internal Medicine
DX: E78.2 Mixed hyperlipidemia (principal)
CPT/HCPCS: 36415; 80061; 84450; 84460

== ENCOUNTER → 2024-03-29 | Outpatient (CLI) | payer BC ==
[2024-03-29 15:28] LABS: Chol/HDL Ratio 2.29 Ratio; LDL Cholesterol,Calculated 63.7 mg/dL (0.0-131.0); VLDL Calculation 18.14 mg/dL (5.00-40.00)
== END | disposition home or self-care (01) ==
LOC: LABWHC1 10:27
PROVIDERS: ATTEND Internal Medicine
DX: E78.2 Mixed hyperlipidemia (principal)
CPT/HCPCS: 36415; 80061